=== PATIENT | female | born 1970 | race Caucasian/White ===

== ENCOUNTER 2021-05-18 15:52 | Outpatient (CLI) | payer OTHER, SELFPAY ==
--- NOTE | ~2021-05-18 | MM_ITS ---
EXAMINATION: MM scrn lien implant BI w kim HISTORY: Screening mammogram TECHNIQUE: Craniocaudal and mediolateral oblique 3-D tomosynthesis images with implant displacement a nd synthetic 2-D images were generated. Craniocaudal and mediolateral oblique views of the breasts wi thout implant displacement were obtained using full field digital mammography. CAD analysis was submi tted and interpreted. COMPARISON: Comparison to multiple prior studies sequentially, with oldest reviewed study dated 12/2016. BREAST PARENCHYMAL COMPOSITION: There are scattered areas of fibroglandular density. FINDINGS: There are bilateral subglandular silicone implants. There is no evidence of suspicious mass , calcification, or architectural distortion to suggest malignancy in either breast. There has been n o suspicious interval change. IMPRESSION: 1. No mammographic evidence of malignancy. 2. Recommend routine screening mammography in one year. BI-RADS Category 1: Negative Reviewed, dictated and finalized at location A.
== END 2021-05-18 15:53 | disposition home or self-care (01) ==
LOC: ANHIMG 15:55
PROVIDERS: Visit Provider Internal Medicine
DX: Z12.31 Encounter for screening mammogram for malignant neoplasm of breast (principal)
CPT/HCPCS: 77063; 77067

== ENCOUNTER 2022-12-13 14:19 | Outpatient (CLI) | payer MEDICARE, SELFPAY ==
--- NOTE | ~2022-12-13 | MM_ITS ---
EXAMINATION: MM scrn lien implant BI w kim HISTORY: Screening mammogram TECHNIQUE: Craniocaudal and mediolateral oblique 3-D tomosynthesis images with implant displacement a nd synthetic 2-D images were generated. Craniocaudal and mediolateral oblique views of the breasts wi thout implant displacement were obtained using full field digital mammography. CAD analysis was submi tted and interpreted. COMPARISON: 05/18/2021, October 18, 2018, October 08, 2016 bilateral implant screening mammogram exam inations BREAST PARENCHYMAL COMPOSITION: There are scattered areas of fibroglandular density. FINDINGS: Status post bilateral augmentation mammoplasty. There is no evidence of suspicious mass, ca lcification, or architectural distortion to suggest malignancy in either breast. There has been no ortiz spicious interval change. IMPRESSION: 1. No mammographic evidence of malignancy. 2. Recommend routine screening mammography in one year. BI-RADS Category 1: Negative Reviewed, dictated and finalized at location A.
== END 2022-12-13 14:20 | disposition home or self-care (01) ==
DX: Z12.31 Encounter for screening mammogram for malignant neoplasm of breast (principal)
CPT/HCPCS: 77063; 77067

== ENCOUNTER 2023-09-05 16:07 | Outpatient (CLI) | payer MEDICARE, SELFPAY ==
--- NOTE | ~2023-09-05 | XR_ITS ---
EXAM: XR pelvis 1-2V DATE: 09/05/2023 16:43 HISTORY: PAIN IN LT HIP, HX LOWER BACK SURGERY . COMPARISON: None available. FINDINGS: Normal mineralization. Osseous excrescence extending laterally towards the right and the L 5 vertebral body. Right-sided posterior fusion hardware, incompletely visualized. Oblique orientation of the L4-5 interbody device. No fracture or dislocation. No lytic or blastic lesion. Mild bilateral superior hip joint space narrowing. No erosion or periosteal change. Soft tissues within normal limi ts. IMPRESSION: Obliquely oriented L4-5 interbody device, recommend radiograph of the lumbar spine to confirm positio n. Mild bilateral hip osteoarthritis. Reviewed, dictated and finalized at location K. STRIAL PSYCHOLOGY PROFESSOR IMPRESSION: Obliquely oriented L4-5 interbody device, recommend radiograph of the lumbar sp ine to confirm position. Mild bilateral hip osteoarthritis.
== END 2023-09-05 16:08 | disposition home or self-care (01) ==
PROVIDERS: Visit Provider Neurological Surgery
DX: M25.552 Pain in left hip (principal); M46.1 Sacroiliitis, not elsewhere classified; M16.0 Bilateral primary osteoarthritis of hip
CPT/HCPCS: 72170

== ENCOUNTER 2024-07-23 13:37 | Outpatient (CLI) | payer MEDICARE, SELFPAY ==
--- NOTE | 2024-07-23 13:43 | ECG_ITS ---
Test Date: 2024-07-23 14:13:06 Measurements Intervals [place] Rate: 59 P: 25 ND: 132 QRS: 22 QRSD: 78 T: 11 QT: 378 QTc: 376 Interpretive Statements PROBABLY SINUS BRADYCARDIA (SIGNIFICANT BASELINE ARTIFACT) BASELINE ARTIFACT- I, II, III, AVR, AVL, AVF, V1-V6 BORDERLINE ECG No previous ECG available for comparison Electronically Signed On 07-23-2024 14:19:13 PETROLEUM REFINING EQUIPMENT OPERATOR by Jesus Reich D.O.
[2024-07-23 14:38] LABS: Anion Gap 5 mmol/L (4-12); Blood Urea Nitrogen 20 mg/dL (7-17); Calcium 9.2 mg/dL (8.4-10.2); Carbon Dioxide 26 mmol/L (22-30); Chloride 108 mmol/L (98-107); Estimated Glomerular Filt Rate 47; Glucose 74 mg/dL (65-110); Potassium 3.6 mmol/L (3.4-5.0); Sodium 139 mmol/L (137-145)
== END 2024-07-23 13:38 | disposition home or self-care (01) ==
LOC: ANHSURGERY 13:43
PROVIDERS: Anesthesiology; Visit Provider Orthopaedic Surgery
DX: Z01.818 Encounter for other preprocedural examination (principal); I10 Essential (primary) hypertension; Z79.899 Other long term (current) drug therapy
CPT/HCPCS: 36415; 80048; 93005

== ENCOUNTER 2024-07-26 01:20 | Day surgery (SDC) | payer MEDICARE, SELFPAY ==
[2024-07-22 15:12] VITALS: BMI 24.9
--- NOTE | 2024-07-22 15:20 | PC.NURSE ---
Report to the Outpatient Waiting Room, entrance under the green pavilion located off [facility], at time _1000_ on date _[id number]_. Planned Procedure Time: _1200_.? Time changes happen often and if your time is changed the preop area will call you the afternoon before. - You and your visitor will be asked to self-screen and do not enter if you have any COVID symptoms. Please call surgeon if you need to reschedule. - A mask is optional within the hospital at this time. Patients may have clear liquids (water, carbonated beverages, clear teas, apple juice) until 3 hours prior to surgery with a maximum of 20 ounces. - No food from midnight until time of surgery and no smoking. This includes no chewing gum, candy or mints. Take only the following medications with a SIP of water on the morning of surgery: __Carvidilol and if needed Hydrocodone__ DO NOT STOP ANY OF YOUR OTHER PRESCRIPTION MEDICATIONS PRIOR TO SURGERY EXCEPT THE FOLLOWING Medications to discontinue per physician ___Meloxicam Date to take last dose__Stop now._Says hasn't taken it in a couple days already. Please no make-up, nail greek, hairspray, perfume, deodorant, or body powder the day of surgery.? No jewelry (including any body piercings) or valuables the day of surgery, leave them at home.? Please take a shower or bath the night before, or the morning of, surgery with an antibacterial soap.? Wear comfortable, loose fitting clothing.? - Jewelry must be removed prior to entering the operating room.? Rings and piercings that are not removed may be cut off. - The hospital will not accept responsibility for valuables.? - Please leave all valuables, including medications, at home the day of surgery. If you are going home after surgery, a licensed laborer driver must drive you home.? - NO public transportation without another adult if you receive anesthesia. - We recommend that an adult stay with you for 24 hours following discharge. - We also recommend that you do not drive, make important decision, drink alcoholic beverages, or take any drugs that were not prescribed by your health care provider for at least 24 hours after your discharge time. Follow any additional instructions given to you from your surgeon. Telephone instructions given to _Hyacinth_and asked if any additional questions and then verbalized understanding. Patient advised to call surgeon office or pre surgery nurse liaison [phone] if any additional questions.
[2024-07-26] VITALS (8 sets, daily range): BP systolic 120–150; BP diastolic 67–89; PULSE 55–61; RESP 14–18; TEMP 36.2–36.6; O2SAT 100
[2024-07-26] MEDS: LACTATED RINGERS 1,000 ML 30 ML IV CONT ×2 (10:20→14:19)
[2024-07-26] MEDS: KETOROLAC 15 MG/ML VIAL (*BKC) IV PUSH (10:51)
[2024-07-26] MEDS: ACETAMINOPHEN 500 MG TABLET 1000 MG PO (10:51)
[2024-07-26] MEDS: EPINEPHrine HCL INJ 1 MG/ML AMPUL 3 MG IRRIGATION (11:11)
--- NOTE | 2024-07-26 11:31 | P.PNAN_ITS ---
Anes - Initial Pre Proc Eval Procedure: Operation Date: 07/26/24 12:00 Proposed Procedures p Right Shoulder Arthroscopic Subacromial Decompression with Debridement - Taj Chu MD Date/Time: 07/26/24 11:31 Surgeon: Taj Chu MD Pre Op Diagnosis: Calcific Tendonitis Rt Shoulder Patient Data Age: 53 Gender: F Height: 1.63 m Weight: 66.2 kg Last Vital Signs Temp 36.2 C L 07/26/24 10:46 Pulse 55 L 07/26/24 10:46 Resp 18 07/26/24 10:46 BP 148/85 H 07/26/24 10:46 Pulse Ox 100 07/26/24 10:46 O2 Del Method Room Air 07/26/24 10:46 Allergies Allergy/AdvReac Type Severity Reaction Status Date / Time Sulfa (Sulfonamide Allergy Severe Anaphylactic Verified 07/26/24 10:45 Antibiotics) Shock fentanyl AdvReac Unknown Hypotension Verified 07/26/24 10:45 morphine AdvReac Unknown Itching Verified 07/26/24 10:45 Home Medications Medication Instructions Recorded Confirmed Type carvedilol 25 mg tablet 25 mg PO Q12H 03/05/24 07/26/24 History estradiol 0.5 mg tablet 0.5 mg PO DAILY 03/05/24 07/22/24 History topiramate 100 mg capsule,extended 100 mg PO DAILY 03/05/24 07/22/24 History release 24 hr hydrocodone 7.5 mg-acetaminophen 1 tablet PO QHS PRN Pain 07/17/24 07/22/24 History 325 mg tablet cyclobenzaprine 5 mg tablet 5 mg PO BID PRN Spasms 07/22/24 07/22/24 History meloxicam 7.5 mg tablet 7.5 mg PO BID 07/22/24 07/26/24 History valsartan 160 1 tablet PO DAILY 07/22/24 07/22/24 History mg-hydrochlorothiazide 12.5 mg tablet Patient hx anesthesia problems: none Family hx anesthesia problems: none Results Review: All pre-operative results and documents have been reviewed as part of the pre- operative evaluation. [facility] Past Medical History Medical History Abnormal weight gain Allergic contact dermatitis, unspecified cause Anorexia Depression, unspecified Essential (primary) hypertension Insomnia, unspecified Iron deficiency anemia, unspecified Low back pain, unspecified Menopausal and female climacteric states Nightmare disorder Other fatigue Other intra-abdominal and pelvic swelling, mass and lump Pain in left ankle and joints of left foot Pain in right shoulder Postherpetic polyneuropathy Vitamin D deficiency, unspecified Surgical History Surgical History History of adenoidectomy History of elbow surgery History of spinal fusion (~2019) History of tonsillectomy History of total hysterectomy S/P insertion of spinal cord stimulator (~02/21/24) Social History Social History Years smoked: 40 Smoking status: Current every day smoker Tobacco type: cigarettes Alcohol intake: current Drinks per week: 4 Substance use: never Substance use type: does not use Do You Feel Safe in your Home?: Yes Lack of Transportation: No Lack of Food: Never True Current Housing: I Have Housing Concerned About Future Housing: No Difficulty Paying Gas/Electric Bills: No Difficulty Paying for Meds: No Currently Unemployed: No Education: Trade/Vocational Certificate Difficulty w/ Childcare or Family Care: No Living arrangements: with family Spiritual care concerns: No Anes - Eval Final PreProcedure Day of Procedure 07/26/24 11:31 Patient weight: normal Heart: regular rate and rhythm Lungs: clear to auscultation Airway: Mallampati scale class II Neurological: alert and oriented Last oral intake: >/= 8 hours ASA classification: III Emergent: no Anesthetic plan: proceed Anesthesia type and monitoring: general ETT and standard monitoring Results Review: All pre-operative results and documents have been reviewed as part of the pre- operative evaluation. Informed Consent: The patient's anesthetic plan and its attendant risks and benefits were discussed with the patient/family/POA. Questions were solicited and answers provided to the satisfaction of the patient/family/POA.
--- NOTE | 2024-07-26 12:16 | WPDHPUPDATE1 ---
History and Physical Update Update Date/Time: 07/26/24 12:16 History and Physical has been reviewed, including an updated exam of the patient. There are NO changes in the patient's condition. Risks, benefits, and alternatives have been discussed and questions answered. Patient agrees to proceed with procedure.
[2024-07-26] MEDS: ceFAZolin 2 GM/D5W 50 ML 2 GM/50 ML BAG IVPB (12:22)
[2024-07-26] MEDS: BUPIVACAINE/EPINEPHRINE 0.5% 30 ML VIAL INFILTRATE (12:40)
[2024-07-26] MEDS: HYDROcodone/acetaminophen (*CRX) 7.5-325 MG TABLET 1 TAB PO (15:09)
--- NOTE | 2024-07-26 16:06 | P.OP_ITS ---
Procedure Note - Detailed Date of Procedure 07/26/24 Pre-op Diagnosis Calcific Tendonitis Rt Shoulder Post-op Diagnosis Other (1. Partial-thickness rotator cuff tear 2. Subacromial impingement 3. Adhesive capsulitis 4. Degenerative labral tear) Procedure Performed Right shoulder 1. Arthroscopic rotator cuff repair 2. Arthroscopic subacromial decompression 3. Arthroscopic capsule release 4. Arthroscopic labral debridement Surgeon Taj Chu MD Anesthesia General and Regional ( interscalene block) Indications Severe shoulder pain, worsening despite injection and physical therapy. Calcium deposit noted radiographically with severe tendinosis on MRI. Contracture was discovered during examination under anesthesia. Findings Preoperative examination under anesthesia revealed moderate contracture. Elevation limited to 130?, external rotation 50?, internal rotation in abduction to neutral. Following the arthroscopic capsule release elevation 160?, external rotation 80?, internal rotation to 20?. Capsule was thickened and inflamed in appearance with significant capsulitis. The superior labrum showed degenerative changes treated with debridement, but the biceps and biceps anchor were normal. The articular cartilage was normal. The articular rotator cuff showed 20% tearing of the supraspinatus with some degenerative appearing tissue. There was fraying at the undersurface of the acromion and the lateral rotator cuff attachment was swollen, and slightly frayed. A subacromial decompression with acromioplasty was performed. The partial-thickness rotator cuff tear was repaired with the medium Regeneten collagen patch, 5 NIKOLE soft tissue anchors, and 2 peek bone anchors laterally. Description of Procedure Preoperative antibiotics were given. An interscalene block was administered in the preoperative area. The patient was bought brought to the operating room. A general anesthetic was administered. The patient was carefully positioned in the beach chair position. The head and neck were carefully positioned. The non operative extremity was also carefully positioned. The shoulder was prepped and draped in the usual sterile fashion. Examination was performed. The shoulder was obviously tight particularly with external rotation. Standard posterior and anterior arthroscopic portals were established. Inflow achieved with the arthroscopic pump using saline and epinephrine. The glenohumeral joint was carefully inspected. Diffuse capsulitis and hyperemia was observed. The anterior capsule was 1st released down to 05:00 o'clock using the arthroscopic resecting tool. The camera was moved into the anterior portal and the posterior capsule was released from the portal inferiorly to the 7 o'clock position. At this point the shoulder felt quite balanced hand the glenohumeral space was patent and nicely mobile. The camera was moved back to the posterior portal. The supraspinatus tear was lightly debrided and included about 20% thickness. Posteriorly near the infraspinatus there was a small area of yellowish more degenerative appearing tissue. Overall the cuff integrity was good. The biceps was stable as it was pulled into the joint and inspected thoroughly. The subscapularis was normal. The articular cartilage and inferior labrum were healthy. The anterior and superior labrum showed moderate fraying. Gentle debridement with the shaver and arthroscopic radiofrequency probe created a nice stable rim. The biceps anchor was stable. The partial-thickness tear was marked using a spinal needle and a PDS suture. The anterior margin of the supr aspinatus just behind the biceps tendon was also marked. Attention was turned to the subacromial space. A complete bursectomy was performed. There was some thickening of the bursa. Subacromial space appeared notably tight. A subacromial decompression was performed where there appeared to be direct impingement. There was mild fraying of the supraspinatus in this area less than 10%. Was elected to repair and reinforce the partial-thickness rotator cuff tear using the collagen implant. The Regeneten implant was inserted through a lateral portal. It covered the supraspinatus footprint very well. Through an accessory superolateral portal, 5 NIKOLE soft tissue anchors were inserted into the implant. Laterally, 2 peek bone anchors were inserted. The arthroscopic instruments were removed. The wounds were closed with 3-0 Monocryl subcuticular suture and steri strips. There were no complications. A sling was applied and the patient brought to the recovery room. Implants [employer] Regeneten medium collagen implant. Five NIKOLE soft tissue anchors. Two peek bone anchors. Estimated Blood Loss 10 Pathology None sent Complications No immediate complications Condition Stable Disposition PACU [facility] Billing Surgery - Charge Forward: Surgery Billing
== END 2024-07-26 15:35 | disposition home or self-care (01) ==
PROVIDERS: Visit Provider Orthopaedic Surgery
PROC: (CPT 29805; principal; 2024-07-26 12:00)
DX: M75.111 Incomplete rotator cuff tear or rupture of right shoulder, not specified as traumatic (principal); M75.41 Impingement syndrome of right shoulder; M75.01 Adhesive capsulitis of right shoulder; I10 Essential (primary) hypertension; F17.210 Nicotine dependence, cigarettes, uncomplicated
CPT/HCPCS: 29827; 29826; A4565; A9270; C1713; J0171; J0690; J1100; J1171; J1885; J2003; J2250; J2405; J2704; J7120

== ENCOUNTER 2024-12-10 14:13 | Outpatient (CLI) | payer MEDICARE, SELFPAY ==
--- NOTE | ~2024-12-10 | MM_ITS ---
EXAMINATION: MM scrn lien implant BI w kim HISTORY: Screening mammogram TECHNIQUE: Craniocaudal and mediolateral oblique 3-D tomosynthesis images with implant displacement a nd synthetic 2-D images were generated. Craniocaudal and mediolateral oblique views of the breasts wi thout implant displacement were obtained using full field digital mammography. CAD analysis was submi tted and interpreted. COMPARISON: Comparison to multiple prior studies sequentially, with oldest reviewed study dated 12/2016. BREAST PARENCHYMAL COMPOSITION: Not dense: There are scattered areas of fibroglandular density. FINDINGS: There is no evidence of suspicious mass, calcification, or architectural distortion to sugg est malignancy in either breast. There has been no suspicious interval change. IMPRESSION: 1. No mammographic evidence of malignancy. 2. Recommend routine screening mammography in one year. BI-RADS Category 1: Negative Reviewed, dictated and finalized at location A.
--- OUTSIDE RECORDS SUMMARY | 2024-12-10 15:56 | XMS_ITS | Patient Health Record ---
Author Organization [facility] Address [address] [place] [address] MONIKA Hallman [address] Care Team Providers Care Radiological Health Specialist Name Role Phone KEISHA MURPHY MD Primary Care Provider UnavailParam Marcial Unavailable [phone] MD HERO, OSCAR Unavailable Unavailable ALLERGIES Allergen [...] Antibiotics anaphylaxis Drug Allergy Active REASON FOR REFERRAL No Information MEDICATIONS Medication SIG (Take, Route, Frequency, Duration) Notes Start Date End Date Status Valsartan-hydroCHLOROthiazid e 160-12.5 MG 1 tablet Oral Once a day Active Chlorhexidine Gluconate 4 % as directed Externally prior to surgery for 2 days Active HYDROcodone-Acetaminophen 7.5-325 MG 1 tablet as needed Oral every 12 hours Active Topiramate 50 MG 1 tablet Oral Once a day Active Acyclovir 800 MG TAKE 1 TABLET (800 M G) BY MOUTH 2 TIMES PER DAY NEEDED Oral for 30 Active Aspirin 81 MG 1 tablet Orally Once a day for 30 day(s) Active Doxycycline Hyclate 100 MG 1 tablet Oral ly twice a day for 5 days Active Meloxicam 7.5 MG TAKE ONE TABLET BY MOUTH TWICE DAILY with meals Oral for 30 Active Estradiol 1 MG 1 tablet Orally Once a day Active Carvedilol 25 MG 1 tablet with food Orally Twice a day Active Cyclobenzaprine HCl 5 MG 1 tablet at bed time as needed Oral Once a day Active SOCIAL HISTORY Tobacco Use: Social History Observation Description Date Details (start date - stop date) Current Smoker NA - NA Sex Assigned At : Social History Observation Description Sex Assigned At Unknown Tobacco Use/Smoking Question Answer Notes Are you a current smoker How often do you smoke cigarettes? every day Are you interested in quitting? Not ready to thony t PROBLEMS Problem Type ICD Code Onset Dates Problem Status W/U Status Risk SNOMED Code Notes Problem Fear of injections and transfusions (F40.231) Active confirmed Fear of medical treatment (957350346) Problem Chronic pain syndrome (G89.4) Active confirmed Chronic michael n syndrome (486823365) Problem Sacroiliitis, not elsewhere classified (M46.1) Active confirmed Solitary sacroiliitis (332478008) Problem Spondylosis without myelopathy or radiculopathy, lumbar region (M47.816) Active confirmed Lumbosacral spondylosis without myelopathy (47743015) Problem Spondylosis without myelopathy or radiculopathy, lumbosacral region (M47.817) Active confirmed Lumbosacral spondylosis without myelopathy (disorder) (54933407) Problem Other intervertebral disc degeneration, lumbar region (M51.36) Active confirmed Degeneration of lumbar intervertebral disc (02547330) Problem Radiculopathy, lumbar region (M54.16) Active confirmed Lumbar radiculopathy (378804792) Problem Postlaminectomy syndrome, not elsewhere classified (M96.1) Active confirmed Post-lami nectomy syndrome (75755143) Problem control engineer (current) use of anticoagulants (Z79.01) Active confirmed Long-term curre nt use of anticoagulant (100858434) Problem control engineer (current) use of non-steroidal anti-inflammatorie s (NSAID) (Z79.1) Active confirmed prison current use of non-steroidal anti-inflammatory drug (470818415930560) VITAL SIGNS Heart Rate 60 /min 06/26/2024 Temperature 97.1 degrees Fahrenheit 02/28/2024 Respiratory Rate 18 /min 06/26/2024 Oximetry 96 % 02/21/2024 Blood pressure diastolic 88 mm Hg 06/26/2024 Height 5 ft 4 in in 06/26/2024 Blood pressure systolic 136 mm Hg 06/26/2024 Weight 144 lbs 06/26/2024 BMI 24.71 kg/m2 06/26/2024 Encounters Encounter Location Date Provider Diagnosis [facility] [address] [place] [address] [place] [address] 12/12/2023 Param Stynowick Postlaminectomy syndrome, not elsewhere classified M96.1 ; Radiculopathy, lumbar region M54.16 ; Other intervertebral disc degeneration, lumbar region M51.36 ; Sacroiliitis, not elsewhere classified M46.1 ; Chronic pain syndrome G89.4 and control engineer (current) use of non-steroidal anti-inflammatories (NSAID) Z79.1 [facility] [address] [place] [address] 01/16/2024 Param Stynowick [facility] [address] [place] [address] [place] [address] 01/24/2024 Param Stynowick Radiculopathy, lumba r region M54.16 [facility] [address] [place] [address] 01/26/2024 Param Stynowick Radiculopathy, lumba r region M54.16 ; Postlaminectomy syndrome, not elsewhere classified M96.1 ; Chronic pain syndrome G89.4 and Fear of injections and transfusions F40.231 [facility] [address] [place] [address] 01/30/2024 Param Stynowick [facility] [address] [place] [address] [place] [address] 01/31/2024 Param Stynowick Radiculopathy, lumba r region M54.16 ; Postlaminectomy syndrome, not elsewhere classified M96.1 ; Sacroiliitis, not elsewhere classified M46.1 ; Chronic pain syndrome G89.4 ; control engineer (current) use of anticoagulants Z79.01 and Fear of injections and transfusions F40.231 [facility] [address] [place] [address] 02/13/2024 Param Stynowick [facility] [address] [place] [address] 02/21/2024 Param Stynowick Postlaminectomy syndrome, not elsewhere classified M96.1 ; Radiculopathy, lumbar region M54.16 and Chronic pain syndrome G89.4 [facility] [address] [place] [address] [place] [address] 02/22/2024 Param Stmattie [facility] [address] [place] [address] [place] [address] 02/28/2024 Param Stmattie Spondylosis without myelopathy or radiculopathy, lumbar region M47.816 ; Radiculopathy, lumbar region M54.16 ; Postlaminectomy syndrome, not elsewhere classified M96.1 ; Spondylosis without myelopathy or radiculopathy, lumbosacral region M47.817 and Chronic pain syndrome G89.4 [facility] [address] [place] [address] [place] [address] 03/05/2024 Param Stynvladimirick Postlaminectomy syndrome, not elsewhere classified M96.1 ; Radiculopathy, lumbar region M54.16 ; Other intervertebral disc degeneration, lumbar region M51.36 ; Sacroiliitis, not elsewhere classified M46.1 ; Chronic pain syndrome G89.4 and prison (current) use of non-steroidal anti-inflammatories (NSAID) Z79.1 [facility] [address] [place] [address] [place] [address] 04/10/2024 Param Starvindvladimirick Postlaminectomy syndrome, not elsewhere classified M96.1 ; Radiculopathy, lumbar region M54.16 ; Other intervertebral disc degeneration, lumbar region M51.36 ; Sacroiliitis, not elsewhere classified M46.1 ; Chronic pain syndrome G89.4 and control engineer (current) use of non-steroidal anti-inflammatories (NSAID) Z79.1 [facility] [address] [place] [address] 04/23/2024 Param Stynvladimirick Postlaminectomy syndrome, not elsewhere classified M96.1 ; Radiculopathy, lumbar region M54.16 ; Other intervertebral disc degeneration, lumbar region M51.36 ; Sacroiliitis, not elsewhere classified M46.1 ; Chronic pain syndrome G89.4 and control engineer (current) use of non-steroidal anti-inflammatories (NSAID) Z79.1 [facility] [address] [facility] [place] [address] 05/21/2024 Param Fields [facility] [address] [facility] [place] [address] 06/26/2024 Param Fields Postlaminectomy syndrome, not elsewhere classified M96.1 ; Radiculopathy, lumbar region M54.16 ; Other intervertebral disc degeneration, lumbar region M51.36 ; Sacroiliitis, not elsewhere classified M46.1 ; Chronic pain syndrome G89.4 and control engineer (current) use of non-steroidal anti-inflammatories (NSAID) Z79.1 ASSESSMENTS Encounter Date Diagnosis Assessment Notes Treatment Notes Treatment Clinical Notes 12/12/2023 Radiculopathy, lumba r region (ICD-10 - M54.16) 12/12/2023 Postlaminectomy syndrome, not elsewhere classified (ICD-10 - M96.1) Given the severity of this patient's persistent pain over many years and failure to respond to surgical management she would like to proceed with a spinal cord stimulator trial as soon as possible. Spinal cord stimulation was discussed with patient for more durable relief of her low back and lower extremity pain and the patient was given a DVD and brochure for more information. She would like to schedule a spinal cord stimulator trial at this time. The risks of this procedure including pain, bleeding, infection, epidural hematoma, spinal headache, persistent spinal fluid leak, nerve damage, spinal cord injury, paralysis, worsening pain and failure to relieve pain were discussed and the patient is agreeable to proceeding at this time. 01/24/2024 Radiculopathy, lumba r region (ICD-10 - M54.16) Spinal cord stimulation was discussed with patient for more durable relief of her low back and lower extremity pain and the patient was given a DVD and brochure for more information. She would like to schedule a spinal cord stimulator trial at this time. The risks of this procedure including pain, bleeding, infection, epidural hematoma, spinal headache, persistent spinal fluid leak, nerve damage, spinal cord injury, paralysis, worsening pain and failure to relieve pain were discussed and the patient is agreeable to proceeding at this time. 01/26/2024 Radiculopathy, lumba r region (ICD-10 - M54.16) 04/23/2024 Postlaminectomy syndrome, not elsewhere classified (ICD-10 - M96.1) 06/26/2024 Postlaminectomy syndrome, not elsewhere classified (ICD-10 - M96.1) 04/10/2024 Postlaminectomy syndrome, not elsewhere classified (ICD-10 - M96.1) 03/05/2024 Radiculopathy, lumba r region (ICD-10 - M54.16) The patient's SCS was interrogated reprogrammed in the office today with improved axial low back and bilateral lower extremity neuropathic pain coverage with good paresthesia overlap. The patient was instructed to continue avoiding submerging in the water, however she is advised to continue daily showers. Additionally, the patient was educated to contact the office in case of fever, bleeding or significant drainage from postoperative incisions. She verbalizes good understanding of that 03/05/2024 Postlaminectomy syndrome, not elsewhere classified (ICD-10 - M96.1) 02/28/2024 Spondylosis without myelopathy or radiculopathy, lumbar region (ICD-10 - M47.816) 02/28/2024 Radiculopathy, lumba r region (ICD-10 - M54.16) The patient's SCS was interrogated reprogrammed in the office today with improved axial low back and bilateral lower extremity neuropathic pain coverage with good paresthesia overlap The patient was instructed to continue avoiding submerging in the water, however she is advised to continue daily showers. Additionally, the patient was educated to contact the office in case of fever, bleeding or significant drainage from postoperative incisions. She verbalizes good understanding of that 01/31/2024 Radiculopathy, lumba r region (ICD-10 - M54.16) Injection sites are clean, dry and intact. Both spinal cord stimulator leads were removed without resistance and were completely intact. Neosporin ointment and Band-Aids were applied at the injection sites. Schedule a permanent spinal cord stimulator implantation. The risks of this procedure including pain, bleeding, infection, epidural hematoma, spinal headache, persistent spinal fluid leak, nerve damage, spinal cord injury, paralysis, worsening pain and failure to relieve pain were discussed and the patient is agreeable to proceeding at this time. The inherent risks of anesthesia including airway obstruction resulting in cardiopulmonary arrest and were also discussed and the patient is agreeable to proceeding at this time 01/31/2024 Postlaminectomy syndrome, not elsewhere classified (ICD-10 - M96.1) 02/21/2024 Radiculopathy, lumba r region (ICD-10 - M54.16) 02/21/2024 Postlaminectomy syndrome, not elsewhere classified (ICD-10 - M96.1) 02/21/2024 Chronic pain syndrom e (ICD-10 - G89.4) 02/28/2024 Postlaminectomy syndrome, not elsewhere classified (ICD-10 - M96.1) 01/31/2024 Sacroiliitis, not elsewhere classified (ICD-10 - M46.1) 04/10/2024 Radiculopathy, lumba r region (ICD-10 - M54.16) 03/05/2024 Other intervertebral disc degeneration, lumbar region (ICD-10 - M51.36) 06/26/2024 Other intervertebral disc degeneration, lumbar region (ICD-10 - M51.36) 06/26/2024 Radiculopathy, lumba r region (ICD-10 - M54.16) The patient's SCS [...] reevaluation of her pain at that time. 01/26/2024 Postlaminectomy syndrome, not elsewhere classified (ICD-10 - M96.1) 01/26/2024 Chronic pain syndrom e (ICD-10 - G89.4) 04/23/2024 Other intervertebral disc degeneration, lumbar region (ICD-10 - M51.36) 04/23/2024 Radiculopathy, lumba r region (ICD-10 - M54.16) The patient's SCS [...] reevaluation of her pain at that time. 12/12/2023 Other intervertebral disc degeneration, lumbar region (ICD-10 - M51.36) 12/12/2023 Sacroiliitis, not elsewhere classified (ICD-10 - M46.1) 04/23/2024 Sacroiliitis, not elsewhere classified (ICD-10 - M46.1) 01/26/2024 Fear of injections and transfusions (ICD-10 - F40.231) 06/26/2024 Sacroiliitis, not elsewhere classified (ICD-10 - M46.1) 03/05/2024 Sacroiliitis, not elsewhere classified (ICD-10 - M46.1) 04/10/2024 Other intervertebral disc degeneration, lumbar region (ICD-10 - M51.36) 01/31/2024 Chronic pain syndrom e (ICD-10 - G89.4) The patient was given a handout explaining the preoperative bathing instructions 02/28/2024 Spondylosis without myelopathy or radiculopathy, lumbosacral region (ICD-10 - M47.817) 02/28/2024 Chronic pain syndrom e (ICD-10 - G89.4) 01/31/2024 control engineer (current) use of anticoagulants (ICD-10 - Z79.01) The patient was instructed to discontinue aspirin for 6 days prior to the procedure. I made the patient aware that she will be at an increased risk for a thromboembolic event during this time and she is willing to accept this risk. The patient was instructed to notify her primary care physician and/or centrifugal wax molder to obtain clearance prior to discontinuing this medication. 04/10/2024 Sacroiliitis, not elsewhere classified (ICD-10 - M46.1) 03/05/2024 Chronic pain syndrom e (ICD-10 - G89.4) 06/26/2024 Chronic pain syndrom e (ICD-10 - G89.4) 04/23/2024 Chronic pain syndrom e (ICD-10 - G89.4) 12/12/2023 Chronic pain syndrom e (ICD-10 - G89.4) 12/12/2023 control engineer (current) use of non-steroidal anti-inflammatories (NSAID) (ICD-10 - Z79.1) The patient was instructed to discontinue Aspirin for 6 days prior to the procedure. 04/23/2024 control engineer (current) use of non-steroidal anti-inflammatories (NSAID) (ICD-10 - Z79.1) 06/26/2024 control engineer (current) use of non-steroidal anti-inflammatories (NSAID) (ICD-10 - Z79.1) 04/10/2024 Chronic pain syndrom e (ICD-10 - G89.4) 01/31/2024 Fear of injections and transfusions (ICD-10 - F40.231) Due to a severe fear of needles and injections, the patient is insisting on IV Sedation with this procedure. The patient was advised she may drink clear liquids up until 2 hours prior to the procedure, but was instructed not to eat for 8 hours prior to the procedure. The inherent risks of anesthesia up to and including airway obstruction potentially resulting in cardiac arrest and were also discussed and the patient is agreeable to proceeding at this time. 03/05/2024 control engineer (current) use of non-steroidal anti-inflammatories (NSAID) (ICD-10 - Z79.1) 04/10/2024 control engineer (current) use of non-steroidal anti-inflammatories (NSAID) (ICD-10 - Z79.1) 12/12/2023 Other Ivonne Petit was present for the entire interview and physical examination, acting as a scribe for Dr. Param Fields. Some of the above chart information was entered by Ivonne Petit. Dr. Fields has reviewed and agrees with this portion of the documentation. The remainder of the above note was dictated by Dr. Fields using voice recognition software and therefore inadvertent errors may have occurred. As a result, this note may not represent a completely accurate interpretation of the intended dictation provided. Thank you Dr. Mora for your kind referral and for involving me in the care of this patient. 01/24/2024 Other Ivonne Petit was present for the entire interview and physical examination, acting as a scribe for Dr. Param Fields. Some of the above chart information was entered by Ivonne Petit. Dr. Fields has reviewed and agrees with this portion of the documentation. The remainder of the above note was dictated by Dr. Fields using voice recognition software and therefore inadvertent errors may have occurred. As a result, this note may not represent a completely accurate interpretation of the intended dictation provided. 01/26/2024 Other The patient voiced understanding of the treatment plan and all questions were addressed. Obtain informed consent: Spinal Cord Stimulator Trial under fluoroscopy. Monitor pulse, blood pressure and SaO2 before, after and as needed during procedure. Verify if the patient is currently taking blood thinner. Verify patients is not currently on antibiotics for infection The patient may not drive home CARE PLAN: Knowledge deficit: Will verbalize understanding of the proposed procedure, including risk of electrical burn, complications and benefits of the procedure? Will the patient exhibit understanding of the discharge instructions? Safety: The potential for injury related to surgery was assessed; Fire risk score determined, test completed if applicable. Risk for injury related to wrong patient, site, procedure. TIME OUT for safety of patient and includes patient name, , procedure site, side, level, allergies, blood thinners, antibiotics, surgical counts, consents correct and signed etc. Risk for infection: Implements aseptic technique, protects from cross-contamination, performs skin preparations. Pain/Discomfort: Patient verbalizes acceptable level of pain relief prior to discharge and the ability to engage in desired activity. I HAVE REVIEWED THE PATIENT'S MEDICATION LIST AND HAVE RECONCILED THE ABOVE MEDICATIONS. PATIENT GOALS AND SAFETY CONCERNS HAVE BEEN ADDRESSED. RN initials TREY Petit was present for the entire interview and physical examination, acting as a scribe for Dr. Param Fields. Some of the above chart information was entered by Ivonne Petit. Dr. Fields has reviewed and agrees with this portion of the documentation. The remainder of the above note was dictated by Dr. Fields using voice recognition software and therefore inadvertent errors may have occurred. As a result, this note may not represent a completely accurate interpretation of the intended dictation provided. 01/31/2024 Other The patient was instructed to take this medication following their permanent SCS implantation to prevent infection The above-named patient was evaluated in conjunction [...] This note was dictated by DEMARCUS Garrison 02/21/2024 Other The patient voiced understanding of the treatment plan and all questions were addressed. Obtain informed consent: Spinal Cord Stimulator Permanent Implant under fluoroscopy. Monitor pulse, blood pressure and SaO2 before, after and as needed during procedure. Verify if the patient is currently taking blood thinner. Verify patients is not currently on antibiotics for infection The patient may not drive home CARE PLAN: Knowledge deficit: Will verbalize understanding of the proposed procedure, including risk of electrical burn, complications and benefits of the procedure? Will the patient exhibit understanding of the discharge instructions? Safety: The potential for injury related to surgery was assessed; Fire risk score determined, test completed if applicable. Risk for injury related to wrong patient, site, procedure. TIME OUT for safety of patient and includes patient name, , procedure site, side, level, allergies, blood thinners, antibiotics, surgical counts, consents correct and signed etc. Risk for infection: Implements aseptic technique, protects from cross-contamination, performs skin preparations. Pain/Discomfort: Patient verbalizes acceptable level of pain relief prior to discharge and the ability to engage in desired activity. I HAVE REVIEWED THE PATIENT'S MEDICATION LIST AND HAVE RECONCILED THE ABOVE MEDICATIONS. PATIENT GOALS AND SAFETY CONCERNS HAVE BEEN ADDRESSED. RN initials SW. 02/28/2024 Other The above-named patient was evaluated in [...] This note was dictated by DEMARCUS Garrison 03/05/2024 Other The above-named patient was evaluated in [...] This note was dictated by DEMARCUS Garrison 04/23/2024 Other The above-named patient was evaluated [...] This note was dictated by DEMARCUS Garrison 06/26/2024 Other The above-named patient was evaluated [...] Medical Decision Makin minutes PLAN OF TREATMENT No Information Insurance Providers Payer Name Payer Address Payer Phone Subscriber Number Group Number Insured Name Patient Relationship to Insured Coverage Start Date Coverage End Date [employer] MED[employer]ARE [address] [place] [phone] [id number] Self - patient is the insured MEDICAL (GENERAL) HISTORY Medical History History ICD Code Hypertension Surgical History Surgery Date(Month/Year) Hysterectomy L5-S1 Fusion 1998 Ulnar nerve release 1999 L3-L4 fusion--Dr. Mora 05/15/2020 Lumbar Hardware Removal--Dr. Mora 2022 Hospitalization History Reason Date(Month/Year) pneumonia 10/2019
--- OUTSIDE RECORDS SUMMARY | 2024-12-10 15:56 | XMS_ITS | Referral Summary ---
Author Organization [facility] Medical Office Building A Address [address] [place] [address] Care Team Providers Care Diamond Driller Helper Name Role Phone Sukumar Leslie MD Unavailable [phone] Miscellaneous, Not In File Unavailable Unava ilable Nura Mora MD Unavailable [phone] Viral Harrison MD Primary Care Provider [phone] Allergies Active Allergy Reactions Criticality Noted Date Comments Morphine Itching Low 08/15/2013 Tolerates hydromorphone 05/15/20 Sulfa (Sulfonamide Antibiotics) Swelling Medium 02/25/2020 Medications carvediloL (COREG) 25 mg tablet Take 25 mg by mouth 2 (two) times a day Active estradioL (ESTRACE) 1 mg tablet Take 1 mg by mouth daily Active valsartan-hydro CHLOROthiazide (DIOVAN-HCT) 160-12.5 mg per tablet Take 1 tablet by mouth daily 09/01/2022 Active gabapentin (NEURONTIN) 800 mg tablet Take 800 mg by mouth every 8 (eight) hours as needed 08/31/2022 Active dexAMETHasone (DECADRON) 1 mg tablet TAKE 1 TABLET BY ORAL ROUTE BETWEEN 11PM AND MIDNIGHT THE NIGHT BEFORE LABS ARE DRAWN 09/01/2022 Active cyclobenzaprine (FLEXERIL) 5 mg tablet Take 5 mg by mouth nightly 08/03/2022 Active acetaminophen (TYLENOL) 325 mg tablet Take 650 mg by mouth every 6 (six) hours as needed for pain Active phentermine (ADIPEX-P) 37.5 mg tablet 0 09/23/2022 Active acyclovir (ZOVIRAX) 800 mg tablet 01/07/2023 Active topiramate (TOPAMAX) 25 mg tablet 01/12/2023 Active HYDROcodone-srinath taminophen (NORCO) 7.5-325 mg per tablet 01/17/2023 Activ e Active Problems Problem Noted Date Diagnosed Date Sacroiliitis 09/06/2022 Overview (09/06/2022): Added automatically from request for surgery [id number] Spondylolisthesis at L4-L5 level 04/01/2020 Overview (04/01/2020): Added automatically from request for surgery [id number] Hypertension 02/25/2020 Elevated troponin level 02/25/2020 Overview (02/26/2020): Added automatically from request for surgery [id number] Hyperlipidemia Neuropathy Sleep apnea Overview (05/15/2020): uvulectomy/sinus surgery Social History Tobacco Use Types Packs/Day Years Used Date Smoking Tobacco: Every Day Cigarettes Smokeless Tobacco: Never Tobacco Cessation:Ready to Q uit: Not Asked; Counseling Given: Not Answered Comments:Smoking cessation booklet provider Alcohol Use Standard Drinks/Week Comments Not Currently 0 (1 standard drink = 0.6 oz pur e alcohol) AUDIT-C Answer Date Recorded Q1: How often do you have a drink containing alc ohol? 2-4 times a month 09/27/2022 Q2: How many drinks containi ng alcohol do you have on a typical day when you are drinking? 3 or 4 09/27/2022 Q3: How often do you have si x or more drinks on one occasion? Less than monthly 09/27/2022 Comments No Sex and Gender Information Value Date Recorded Sex Assigned at Not on file Legal Sex Female 5:51 PM CARDIOGRAPH OPERATOR Gender Identity Not on file Sexual Orientation Not on file Last Filed Vital Signs Vital Sign Reading Time Taken Comments Blood Pressure 111/58 09/27/2022 1:30 PM CARDIOGRAPH OPERATOR Pulse 58 09/27/2022 1:33 PM CARDIOGRAPH OPERATOR Temperature 36.4 C (97.5 F) 09/27/2022 12:50 PM CARDIOGRAPH OPERATOR Respiratory Rate 15 09/27/2022 1:33 PM CARDIOGRAPH OPERATOR Oxygen Saturation 95% 09/27/2022 1:33 PM CARDIOGRAPH OPERATOR Inhaled Oxygen Concentration - - Weight 71.2 kg (157 lb) 11/08/2022 2:23 PM CARDIOGRAPH OPERATOR Height 162.6 cm (5' 4 ) 11/08/2022 2:23 PM CARDIOGRAPH OPERATOR Body Mass Index 26.95 11/08/2022 2:23 PM CARDIOGRAPH OPERATOR Plan of Treatment Not on file Medical Devices Implanted Type Area Watchguard Device Identifier Shelf Expiration Date Model / Serial / Lot [employer] Spinal Cord Stimulator Leads (Sc-2218-50) Implanted:Qty: 2 Lead Chest [employer] Neuro- MT-2218-5 0 / / [employer] Spinal Cord Stimulator (Sc-1216) Spinal Cord Stimulator Back [employer] Neuro- MT-1216 / / Description:Information not complete -- VM to patient 05/31/24, pt does not have mNectar [id number] Device Closure Angio-Seal Vip Bondek-Plus Polyglyd L70 Cm Od6 Fr Odsec.035 In Vascular - [id number] Implanted:Qty: 1 on 02/26/2020 by Zenon Reddy MD at [facility] [employer] [id number] / / Filler Bone Void Nanoss Bioactive 3d Porous Calcium Phosphate L50 Mm X W25 Mm X H8 Mm 5 Ml Semirigid Resorable Scaffold Compressible Latex Free - [id number] Implanted:Qty: 1 on 05/15/2020 by Nura Mora MD at [facility] Left: Spine Lumbar [employer] 06/07/2021 90-300-25 504 / / [id number] Medtronic Sofamor Danek [id number] Infuse 14mm 23mm Absorbable Sponge Sterile Water Syringe Needle - [id number] Implanted:Qty: 1 on 05/15/2020 by Nura Mora MD at [facility] Left: Spine Lumbar Medtronic Inc 05/04/2021 [id number] / / [id number] L Cage Tibond [id number] 5d - [id number] Implanted:Qty: 1 on 05/15/2020 by Nura Mora MD at [facility] Left: Spine Lumbar Spinal Elements [id number] 3 / / Screw Set Spine Zavation Nonstrl - [id number] Implanted:Qty: 6 on 05/15/2020 by Nura Mora MD at [facility] Explanted:Qty: 3 on 09/27/2022 by Nura Mora MD at [facility] Left: Spine Lumbar [employer] Llc / / Screw Polyaxial Cannulated Reduction 6.5x35 - [id number] Implanted:Qty: 2 on 05/15/2020 by Nura Mora MD at [facility] Explanted:Qty: 1 on 09/27/2022 by Nura Mora MD at [facility] Left: Spine Lumbar Zavation Llc 13R-6535 / / Screw Polyaxial Cannulated Reduction 6.5x45 - [id number] Implanted:Qty: 4 on 05/15/2020 by Nura Mora MD at [facility] Explanted:Qty: 2 on 09/27/2022 by Nura Mora MD at [facility] Left: Spine Lumbar Z[employer] Llc 13R-6545 / / Lul Pre-Bent 6.0x80 - [id number] Implanted:Qty: 2 on 05/15/2020 by Nura Mora MD at [facility] Explanted:Qty: 1 on 09/27/2022 by Nura Mora MD at [facility] Left: Spine Lumbar [employer] Llc 13-C080 / / Explanted Type Area Watchguard Device Identifier Shelf Expiration Date Model / Serial / Lot Don[employer]ation Llc 210-1003-2 Zavation Jacque Blunt Smooth Spine Wire Fixation Nonsterile - [id number] Explanted:Qty: 6 on 05/15/2020 at [facility] Left: Spine Lumbar [employer] Llc 210-1003-2 / / Procedures Procedure Name Priority Date/Time Associated Diagnosis Comments SCREENING MAMMOGRAM Routine 05/21/2014 1 :44 PM CDT from Last 3 Months or Most Recently Relevant to Health Maintenance Results * Screening Mammogram (05/21/2014 1:44 PM CDT) Anatomical Region Laterality Modality Breast N/A Mammography 05/21/2014 1:44 PM CDT Narrative 05/21/2014 1:51 PM CDT ALLAN YANG M.D. FINAL REPORT ACC# Date Time Exam [id number] May 21, 2014 13:44:00 WMM 96537P Screening Mamm Bilat 2v Technologist(s): Teri Krishnan; ; EXAMINATION: Mammogram Technique: Bilateral Full-Field Digital Screening Mammogram was performed. Views obtained: bilateral craniocaudal; bilateral craniocaudal implant displaced; bilateral mediolateral oblique; and bilateral mediolateral oblique implant displaced. Computer Aided Detection was performed with Lookout 1.3 version 9.3. Mammogram Findings: There are scattered fibroglandular densities. There is no suspicious abnormality in either breast. IMPRESSION: Annual screening mammography is recommended. OVERALL FINAL ASSESSMENT: BI-RADS CATEGORY 1: Negative. Requested By: Dictated By: ALLAN YANG M.D. on May 21 2014 1:51P This document has been electronically signed by: ALLAN YANG M.D. on May 21 2014 1:51P Procedure Note Provider, MD Princess - 01/04/2017 ALLAN YANG M.D. FINAL REPORT ACC# Date Time Exam [id number] May 21, 2014 13:44:00 WMM [id number] Screening Mamm Bilat 2v Technologist(s): Teri Krishnan; ; EXAMINATION: Mammogram Technique: Bilateral Full-Field Digital Screening Mammogram was performed. Views obtained: bilateral craniocaudal; bilateral craniocaudal implant displaced; bilateral mediolateral oblique; and bilateral mediolateral oblique implant displaced. Computer Aided Detection was performed with Lookout 1.3 version 9.3. Mammogram Findings: There are scattered fibroglandular densities. There is no suspicious abnormality in either breast. IMPRESSION: Annual screening mammography is recommended. OVERALL FINAL ASSESSMENT: BI-RADS CATEGORY 1: Negative. Requested By: Dictated By: ALLAN YANG M.D. on May 21 2014 1:51P This document has been electronically signed by: ALLAN YANG M.D. on May 21 2014 1:51P us Historical Provider MD BAL MAMMO PROCEDURES Connie l Result from Last 3 Months or Most Recently Relevant to Health Maintenance Insurance [facility] AETNA MEDICARE [facility] AETNA MEDICARE AETNA MEDICARE Advance Directives For more information, please contact: [phone] * Full Code (Latest Code Status on File) Date Activated Date Inactivated Comments 05/15/2020 5:35 PM 05/16/2020 5:59 PM * Full Code Date Activated Date Inactivated Comments 02/26/2020 6:31 PM 02/27/2020 7:12 PM * Full Code Date Activated Date Inactivated Comments 02/25/2020 3:59 PM 02/26/2020 6:31 PM Care Teams Diamond Driller Helper Relationship Specialty Start Date End Date Viral Harrison MD [address] [place] [address] PCP - General Family Medicine 09/13/22 Sukumar Leslie MD [address] [place] [address] Consulting Physician Cardiology 02/27/20 Miscellaneous, Not In File 02/27/20 [place] [address] [place] [address] Surgeon Neurosurgery 02/27/20
--- OUTSIDE RECORDS SUMMARY | 2024-12-10 15:56 | XMS_ITS | Clinical Summary ---
Author Organization [facility] Address Formerly [facility] [place] [address] Care Team Providers Care Pipe Fitter [address] Service Name Role Phone Viral Harrison MD Primary Care Provider Social History Tobacco Use Types Packs/Day Years Used Date Smoking Tobacco: Never Assessed Comments Unknown Sex and Gender Information Value Date Recorded Sex Assigned at Not on file Legal Sex Female 10:35 AM CDT Gender Identity Not on file Sexual Orientation Not on file Plan of Treatment Health Maintenance Due Date Last Done Comments CT Colonography 1969 Colonoscopy 1969 Colorectal Cancer Screening 1969 FIT-DNA 1969 FIT 1969 FOBT 1969 Mammogram 1969 Pap Smear 1969 Sigmoidoscopy 1969 MMR Vaccines (1 of 1 - Standard series) 1970 DTaP,Tdap,and Td Vaccines (1 - Tdap) 1976 Varicella Vaccines (1 of 2 - 13+ 2-dose series) 1982 Hepatitis B Vaccines (1 of 3 - 19+ 3-dose series) 1988 COVID-19 Vaccine (3 - 2023-2 5 season) 2024 08/17/2021, 07/27/2021 Influenza Vaccine (Season Ended) 2025 06/19/2014 RSV Vaccines and 60 Years or Older (1 - 1-dose 75+ series) 2044 Zoster Series Vaccines Completed 0, 05/25/2020 AMB Pneumococcal 0-64 yrs Aged Out No longer eligible based on patient's age to complete this topic HIB Vaccines Aged Out No longer eligi ble based on patient's age to complete this topic HPV Vaccines Aged Out No longer eligi ble based on patient's age to complete this topic Hepatitis A Vaccines Aged Out No long er eligible based on patient's age to complete this topic IPV Vaccines Aged Out No longer eligi ble based on patient's age to complete this topic Meningococcal ACWY Vaccine Aged Out N o longer eligible based on patient's age to complete this topic Meningococcal B Vaccine Aged Out No l onger eligible based on patient's age to complete this topic RSV Vaccines <20 Months Aged Out No l onger eligible based on patient's age to complete this topic Insurance AETNA MEDICARE Care Teams Pipe [address] Service Relationship Specialty Start Date End Date Viral Harrison MD [address] [place] [id number] PCP - General Nurse Tech 08/18/22
--- OUTSIDE RECORDS SUMMARY | 2024-12-10 15:56 | XMS_ITS ---
Author Organization [facility] Address [address] [place] [address] MONIKA Hallman [address] Care Team Providers Care Director Revenue Name Role Phone KATHERINE DUNBAR, KEISHA Primary Care Provider UnavailParam Marcial Unavailable [phone] MD HERO, OSCAR Unavailable Unavailable ALLERGIES Allergen [...] Location Date Provider Diagnosis [facility] [address] [place] [address] [place] [address] 04/23/2024 Param Fields Postlaminectomy syndrome, not elsewhere classified M96.1 ; Radiculopathy, lumbar region M54.16 ; Other intervertebral disc degeneration, lumbar region M51.36 ; Sacroiliitis, not elsewhere classified M46.1 ; Chronic pain syndrome G89.4 and correction (current) use of non-steroidal anti-inflammatories (NSAID) Z79.1 ASSESSMENTS Encounter Date Diagnosis Assessment Notes Treatment Notes Treatment Clinical Notes 04/23/2024 Postlaminectomy syndrome, not elsewhere classified (ICD-10 - M96.1) 04/23/2024 Radiculopathy, lumba r region (ICD-10 - [...] classified (ICD-10 - M46.1) 04/23/2024 Chronic pain syndrom e (ICD-10 - G89.4) 04/23/2024 buttermaker continuous churn (current) use of non-steroidal anti-inflammatories (NSAID) (ICD-10 [...] Notes * Examination Category Sub-Category Detail Notes Examination/ Pre-Anesthesia Assessment General: The patient is alert and norah ented X 3 in moderate distress secondary to [...] patient's typical axial low back pain. [place]'s, [place]'s and [place]'s are positive bilaterally. There is [...] of Present Illness) Category Sub-Category Detail Notes Pain Management Radiographic Imaging MRI lumbar spine done on 01/26/23 demonstrates DDD from T10-11 through L3-4. There is an anterior and posterior interbody fusion at L4-5 and L5-S1. At L3-4 there is central canal and right foraminal stenosis Assessment and Follow-up: Follow-up Plan documen janay:: Yes [facility] Quality 2020: MIPS Documented:: Compliant
--- OUTSIDE RECORDS SUMMARY | 2024-12-10 15:56 | XMS_ITS | Clinical Summary ---
Author Organization [facility] Medical Office Building A Address [address] [place] [address] Care Team Providers Care Production Laborer Name Role Phone Sukumar Leslie MD Unavailable [phone] Miscellaneous, Not In File Unavailable Unava ilable Nura Mora MD Unavailable [phone] Viral Harrison MD Primary Care Provider [phone] Allergies Active Allergy Reactions Criticality Noted Date [...] (09/06/2022): Added automatically from request for surgery [id number] Spondylolisthesis at L4-L5 level 04/01/2020 Overview (04/01/2020): Added automatically from request for surgery [id number] Hypertension 02/25/2020 Elevated troponin level 02/25/2020 Overview (02/26/2020): Added automatically from request for surgery [id number] Hyperlipidemia Neuropathy Sleep apnea Overview (05/15/2020): uvulectomy/sinus surgery Surgical History Surgery Date Site/Laterality Comments BACK SURGERY lumbar fusion X 2 HYSTERECTOMY ULNAR NERVE TRANSPOSITION Right UVULECTOMY SINUS SURGERY TONSILLECTOMY BREAST SURGERY augmentation Medical History Medical History Date Comments Hypertension Bradycardia during preop per iod before planned spinal surgery Hx of Clostridium difficile infection Hx: recurrent pneumonia Anemia Arthritis Cataract Neuropathy Hyperlipidemia Sleep apnea uvulectomy/sinus surgery Kidney stone 30 years ago Depression Family History Medical History Relation Name Comments Heart disease Father Thyroid disease Mother Relation Name Status Comments Father Alive Mother Alive Social History Tobacco Use Types Packs/Day Years [...] on file Legal Sex Female 5:51 PM DRESS DESIGNER Gender Identity Not on file Sexual Orientation Not on file Obstetrics History Last Filed Vital Signs Vital Sign Reading Time Taken Comments Blood Pressure 111/58 09/27/2022 1:30 PM DRESS DESIGNER Pulse 58 09/27/2022 1:33 PM DRESS DESIGNER Temperature 36.4 C (97.5 F) 09/27/2022 12:50 PM DRESS DESIGNER Respiratory Rate 15 09/27/2022 1:33 PM DRESS DESIGNER Oxygen Saturation 95% 09/27/2022 1:33 PM DRESS DESIGNER Inhaled Oxygen Concentration - - Weight 71.2 kg (157 lb) 11/08/2022 2:23 PM DRESS DESIGNER Height 162.6 cm (5' 4 ) 11/08/2022 2:23 PM DRESS DESIGNER Body Mass Index 26.95 11/08/2022 2:23 PM DRESS DESIGNER Plan of Treatment Health Maintenance Due Date Last Done Comments Colon Cancer Screening-Colonoscopy 1969 Depression Screening 1969 Hepatitis C Screening 1969 DTaP/Tdap/Td Vaccine (1 - Tdap) 1980 Hepatitis B Screening 12/11/1987 Regular Well Visit/Exam 18-64 12/11/1987 Pneumococcal vaccine <65 (1 of 2 - PCV) 1988 Breast Cancer Screening-Mammogram 05/21/2015 014 Zoster Vaccine (1 of 2) 12/11/2019 Influenza Vaccine (#1) 2024 06/19/2014 Medical Devices Implanted Type Area Classroom Aide Device Identifier Shelf Expiration Date Model / Serial / Lot [employer] Spinal Cord Stimulator Leads (Sc-2218-50) Implanted:Qty: 2 Lead Chest [employer] Neuro- SC-2218-5 0 / / [employer] Spinal Cord Stimulator (Sc-1216) Spinal Cord Stimulator Back [employer] Neuro- SC-1216 / / Description:Information not complete -- VM to patient 05/31/24, pt does not have MyChart Transave [id number] Device Closure Angio-Seal Vip Bondek-Plus Polyglyd L70 Cm Od6 Fr Odsec.035 In Vascular - [id number] Implanted:Qty: 1 on 02/26/2020 by Zenon Reddy MD at [facility] Transave/[employer] [id number] / / Filler Bone Void Nanoss Bioactive 3d Porous Calcium Phosphate L50 Mm X W25 Mm X H8 Mm 5 Ml Semirigid Resorable Scaffold Compressible Latex Free - [id number] Implanted:Qty: 1 on 05/15/2020 by Nura Mora MD at [facility] Left: Spine Lumbar [employer] 06/07/2021 90-300-25 504 / / [id number] Medtronic Sofamor Danek [id number] Infuse 14mm 23mm Absorbable Sponge Sterile Water Syringe Needle - [id number] Implanted:Qty: 1 on 05/15/2020 by Nura Mora MD at [facility] Left: Spine Lumbar Medtronic Inc 05/04/2021 [id number] / / [id number] L Cage Tibond [id number] 5d - [id number] Implanted:Qty: 1 on 05/15/2020 by Nura Mora MD at [facility] Left: Spine Lumbar Spinal Elements G53966-16 3 / / Screw Set Spine Zavation Nonstrl - [id number] Implanted:Qty: 6 on 05/15/2020 by Nura Mora MD at [facility] Explanted:Qty: 3 on 09/27/2022 by Nura Mora MD at [facility] Left: Spine Lumbar [employer]c / / Screw Polyaxial Cannulated Reduction 6.5x35 - [id number] Implanted:Qty: 2 on 05/15/2020 by Nura Mora MD at [facility] Explanted:Qty: 1 on 09/27/2022 by Nura Mora MD at [facility] Left: Spine Lumbar [employer] Llc 13R-6535 / / Screw Polyaxial Cannulated Reduction 6.5x45 - [id number] Implanted:Qty: 4 on 05/15/2020 by Nura Mora MD at [facility] Explanted:Qty: 2 on 09/27/2022 by Nura Mora MD at [facility] Left: Spine Lumbar [employer] Llc 13R-6545 / / Lul Pre-Bent 6.0x80 - [id number] Implanted:Qty: 2 on 05/15/2020 by Nura Mora MD at [facility] Explanted:Qty: 1 on 09/27/2022 by Nura Mora MD at [facility] Left: Spine Lumbar Magy Lea 13-C080 / / Explanted Type Area Classroom Aide Device Identifier Shelf Expiration Date Model / Serial / Lot Magy Lea 210-1003-2 Magy Jacque Blunt Smooth Spine Wire Fixation Nonsterile - [id number] Explanted:Qty: 6 on 05/15/2020 at [facility] Left: Spine Lumbar Magy Lea 210-1003-2 / / Procedures Procedure Name Priority Date/Time Associated Diagnosis Comments SCREENING MAMMOGRAM Routine 05/21/2014 1 :44 PM CDT from Last 3 Months or Most Recently Relevant to Health Maintenance Results * Screening Mammogram (05/21/2014 1:44 PM CDT) Anatomical Region Laterality Modality Breast N/A Mammography 05/21/2014 1:44 PM CDT Narrative 05/21/2014 1:51 PM CDT ALLAN YANG M.D. FINAL REPORT ACC# Date Time Exam [id number] May 21, 2014 13:44:00 WMM [id number] Screening Mamm Bilat 2v Technologist(s): Teri Krishnan; ; EXAMINATION: Mammogram Technique: Bilateral Full-Field Digital Screening Mammogram was performed. Views obtained: bilateral craniocaudal; bilateral craniocaudal implant displaced; bilateral mediolateral oblique; and bilateral mediolateral oblique implant displaced. Computer Aided Detection was performed with Crowdasaurus.3 version 9.3. Mammogram Findings: There are scattered [...] M.D. FINAL REPORT ACC# Date Time Exam [id number] May 21, 2014 13:44:00 WMM [id number] Screening Mamm Bilat 2v Technologist(s): Teri Krishnan; ; EXAMINATION: Mammogram Technique: Bilateral Full-Field Digital Screening Mammogram was performed. Views obtained: bilateral craniocaudal; bilateral craniocaudal implant displaced; bilateral mediolateral oblique; and bilateral mediolateral oblique implant displaced. Computer Aided Detection was performed with Crowdasaurus.3 version 9.3. Mammogram Findings: There are scattered fibroglandular densities. There is no suspicious abnormality in either breast. IMPRESSION: Annual screening mammography is recommended. OVERALL FINAL ASSESSMENT: BI-RADS CATEGORY 1: Negative. Requested By: Dictated By: ALLAN YANG M.D. on May 21 2014 1:51P This document has been electronically signed by: ALLAN YANG M.D. on May 21 2014 1:51P [facility] Provider MD BAL MAMMO PROCEDURES Connie l Result from Last 3 Months or Most Recently Relevant to Health Maintenance Insurance [facility] AETNA MEDICARE [facility] AETNA MEDICARE AETNA MEDICARE Advance Directives For more information, please contact: [phone] * Full Code (Latest Code Status on File) Date Activated Date Inactivated Comments 05/15/2020 5:35 PM 05/16/2020 5:59 PM * Full Code Date Activated Date Inactivated Comments 02/26/2020 6:31 PM 02/27/2020 7:12 PM * Full Code Date Activated Date Inactivated Comments 02/25/2020 3:59 PM 02/26/2020 6:31 PM Care Teams Production Laborer Relationship Specialty Start Date End Date Viral Harrison MD [address] [address] PCP - General Family Medicine 09/13/22 Sukumar Leslie MD [address] [place] [address] Consulting Physician Cardiology 02/27/20 Miscellaneous, Not In File 02/27/20 [place] [address] [place] [address] Surgeon Neurosurgery 02/27/20
--- OUTSIDE RECORDS SUMMARY | 2024-12-10 15:56 | XMS_ITS | CONTINUITY OF CARE DOCUMENT ---
Author Name arlette chong Address Unknown Organization [facility] Address [address] [place] [address] Phone [phone] Care Team Providers Care Ediphone Operator Name Role Phone Anuj DUNBAR, Sukumar Unavailable Sukuamr Leslie MD Unavailable BRANDY MELVIN MD Unavailable PROBLEMS Condition Status Date Provider Notes Hypertension;neg duplex;mild coral on angio active Sukumar Leslie MD Overweight active Sukumar Leslie MD Sleep apnea;non compliant completed 05/24 - Sukumar Leslie MD Headache, chronic active Sukumar Leslie MD FAMILY HISTORY OF HEART DISEASE active Steffi Leslie MD had byapss Hypothyroidism completed - Sukumar Leslie MD Screening active Sukumar Leslie MD Hyperlipidemia;with high crp active Sukumar Leslie MD Shortness of breath completed - Sukumar Leslie MD B12 deficiency active Sukumar Leslie MD Vitamin D deficiency active Sukumar Montano Renal artery stenosis active Sukumar Leslie MD IRON DEFICIENCY active Sukumar Leslie MD Exposure to SARS-associated coronavirus;NEG SWAB active Sukumar Leslie MD Diastolic CHF active Sukumar Leslie MD C difficile colitis active Sukumar Leslie MD Anemia, iron deficiency active Sukumar miller MD Hypertriglyceridemia active Sukumar Montano Tobacco use, quit active Sukumar Leslie MD Bradycardia and low bp with geneal anetheisa;nml tsh active Sukumar Leslie MD Nerve pain active Sukumar Leslie MD ENCOUNTERS Date Type Provider Location Encounter Diag nosis - In-person encounter Office Visit Sukumar Leslie MD [facility] Exposure to SARS-associated coronavirus;NEG SWABNerve pain - In-person encounter Office Visit Sukumar Leslie MD [facility] Hypertension;neg duplex;mild coral on angioHyperlipidemia;with high crpRenal artery stenosisIRON DEFICIENCYExposure to SARS-associated coronavirus;NEG SWABDiastolic CHFC difficile colitisAnemia, iron deficiencyHypertriglyceridemiaTobacco use, quitBradycardia and low bp with geneal anetheisa;nml tsh - In-person encounter Office Visit Sukumar Leslie MD [place] [facility] Hypertension;neg duplex;mild coral on angioSleep apnea;non compliantHypothyroidismShortness of ozupxyZ62 deficiencyVitamin D deficiency - In-person encounter Office Visit Sukumar Leslie MD [place] Hypertension;neg duplex;mild coral on angioOverweightHeadache, chronicFAMILY HISTORY OF HEART DISEASEScreeningHyperlipidemia;with high crp VITAL SIGNS Date Observation Value Provider Body Mass Index (Ratio) 26.95 kg/m2 Steffi Leslie MD weight E&M 157 [lb_av] Sukumar Montano blood pressure, diastolic 80 mm[Hg] Brayan Leslie MD blood pressure, systolic 130 mm[Hg] Femi Leslie MD Body Mass Index (Ratio) 27.29 kg/m2 Steffi Leslie MD blood pressure, diastolic 104 mm[Hg] Fe brielle Montaño blood pressure, systolic 153 mm[Hg] Fel icia Danyel oxygen saturation, oximetry 98 % Mahi Montaño respiratory rate E&M 16 /min Mahi Montaño pulse rate 84 /min Mahi Montaño weight E&M 159 [lb_av] Mahi Montaño height E&M 64 [in_i] Mahi Montaño Body Mass Index (Ratio) 27.63 kg/m2 Steffi Leslie MD blood pressure, diastolic 70 mm[Hg] Da che Anthony blood pressure, systolic 122 mm[Hg] Dac ia Anthony oxygen saturation, oximetry 96 % Leisa Anthony respiratory rate E&M 16 /min Leisa V oss pulse rate 76 /min Leisa Anthony weight E&M 161 [lb_av] Leisa Anthony height E&M 64 [in_i] Leisa Anthony blood pressure, diastolic 80 mm[Hg] Ca ndace Clare blood pressure, systolic 130 mm[Hg] Can dace Clare Body Mass Index (Ratio) 27.08 kg/m2 Steffi Leslie MD blood pressure, resting Yes Janis Carrero blood pressure, diastolic 91 mm[Hg] Maral Carrero blood pressure, systolic 133 mm[Hg] Татьяна Carrero oxygen saturation, oximetry 98 % Carly Carrero respiratory rate E&M 18 /min Rosa Carrero pulse rate 78 /min Carly hanks weight E&M 157.8 [lb_av] Carly lynne height E&M 64 [in_i] Carly hanks ALLERGIES Allergy Name Onset Date Reaction Criticality Status SULFA High Criticality active HISTORY OF MEDICATION USE Medication Status Instructions Dates Provider Indications Com ments ASPIRIN 81 81 MG ORAL TABLET DELAYED RELEASE active One Tab By Mouth Daily Sukumar Leslie MD VITAMIN B-12 1000 MCG ORAL TABLET active One tablet daily Sukumar Leslie MD LIPITOR 40 MG ORAL TABLET active ONE TAB. DAILY Sukumar Leslie MD FERROUS SULFATE 325 (65 FE) MG ORAL TABLET active ONE PER DAY Sukumar Leslie MD METHOCARBAMOL 750 MG ORAL TABLET active TAKE 1 TABLET BY MOUTH EVERY 8 TO 12 HOURS NEEDED Sukumar Leslie MD #75, 25 days supply, Prescribed by JANEL KLEIN, Filled 01/02/2020 HYDROCHLOROTHIAZIDE 12.5 MG ORAL TABLET active TAKE 1 TABLET BY MOUTH ONCE DAILY Sukumar Leslie MD #90, 90 days supply, Prescribed by BRANDY MELVIN, Filled 01/23/2020 GABAPENTIN 600 MG ORAL TABLET active TAKE 1 TABLET BY MOUTH EVERY 8 TO 12 HOURS NEEDED Sukumar Leslie MD #60, 20 days supply, Prescribed by JANEL KLEIN, Filled 01/28/2020 HYDROCODONE-ACETAMINO PHEN 7.5-325 MG ORAL TABLET active TAKE 1 TABLET BY MOUTH EVERY 6 TO 8 HOURS NEEDED Sukumar Leslie MD #90, 23 days supply, Prescribed by JANEL KLEIN, Filled 02/10/2020 VALSARTAN 160 MG ORAL TABLET active TAKE 1 TABLET BY MOUTH ONCE DAILY Sukumar Leslie MD #30, 30 days supply, Prescribed by BRANDY MELVIN, Filled 02/14/2020 CARVEDILOL 25 MG ORAL TABLET active TAKE 1 TABLET BY MOUTH TWICE DAILY Sukumar Leslie MD #60, 30 days supply, Prescribed by BRANDY MELVIN, Filled 02/15/2020 ESTRADIOL 1 MG ORAL TABLET active TAKE 1 TABLET BY MOUTH ONCE DAILY Sukumar Leslie MD #60, 60 days supply, Prescribed by BRANDY MELVIN, Filled 03/06/2020 VITAMIN D3 5000 UNIT ORAL CAPSULE completed ONE TAB BY MOUTH DAILY - Sukumar Leslie MD VITAMIN B-12 1000 MCG ORAL TABLET completed One tablet daily - Sukumar Leslie MD DIOVAN HCT 320-25 MG ORAL TABLET completed ONE TAB. DAILY - Sukumar Leslie MD VITAMIN D3 1.25 MG (37629 UT) ORAL CAPSULE active one tab twice a month Sukumar Leslie MD EDARBYCLOR 40-25 MG ORAL TABLET completed daisonu - Krish Freeman RN COREG 25 MG ORAL TABLET completed ONE TAB. TWICE DAILY - Sukumar Leslie MD [id number]-C ODEINE 12-236-91-30 MG ORAL CAPSULE completed 3 times daily - Leisa Cruz GABAPENTIN 300 MG ORAL CAPSULE completed 3 times daily - Sukumar Leslie MD DICLOFENAC POTASSIUM 50 MG ORAL TABLET completed 3 times daily as needed - Sukumar Leslie MD HYDROCODONE-ACETAMINO PHEN 5-325 MG ORAL TABLET completed 1 tab every 12 hours as needed - Sukumar Leslie MD SOCIAL HISTORY Date Observation Value Provider social history reviewed E&M revi ewed - no changes required Sukumar Leslie MD quit smoking, stage quit Sukumar major MD social history E&M S moking History: P atient currently smokes every day. P atient has been counseled to quit. Sukumar Leslie MD social history reviewed E&M revi ewed - no changes required Sukumar Leslie MD smoking/tobacco cess ation, patient education and counseling yes Mahi Montaño smoking status Current every day smoker F norma Montaño social history E&M S moking History: P atient currently smokes every day. P atient has been counseled to quit. Sukumar Leslie MD social history reviewed E&M revi ewed - no changes required Sukumar Leslie MD smoking/tobacco cess ation, patient education and counseling yes Leisa Cruz smoking status Current every day smoker D acsharan Cruz smoking status Current every day smoker C trina Sparks smoking/tobacco cess ation, patient education and counseling yes Sukumar Leslie MD smoking status Current every day smoker H cori Leslie MD social history E&M S moking History: P melisa currently smokes every day. Sukumar Leslie MD social history reviewed E&M revi ewed - no changes required Sukumar Leslie MD number of years as a smoker 30 a Carly Carrero smoking history, tot al pack/day 0.5 Carly Carrero FUNCTIONAL STATUS Date Observation Value Provider periodic limb movement index absent (0) Mona Sparks FAMILY HISTORY Family Member Condition Father Family History of Co ronary Artery Disease: INSURANCE PROVIDERS Payer name Policy type / Coverage type [employer] party ID [employer] [facility] Other [id number] ADVANCE DIRECTIVES Name Date DISCUSSED - NO DECISION MADE TREATMENT PLAN Date Name Performer TeleHealth: H er updated medication list for this problem includes: Hydrochlorothiazide 12.5 Mg Oral Tablet (Hydrochlorothiazide) ..... Take 1 tablet by mouth once daily Valsartan 160 Mg Oral Tablet (Valsartan) ..... Take 1 tablet by mouth once daily Carvedilol 25 Mg Oral Tablet (Carvedilol) ..... Take 1 tablet by mouth twice daily BP today: 130/80 P rior BP: 153/104 (03/09/2020) Prior 10 Yr Risk Heart Disease: Not enough information (06/13/2017) Sukumar Leslie MD TeleHealth Sukumar Leslie MD TeleHealth: b ilalt coral 30% Sukumar Leslie MD TeleHealth Sukumar Leslie MD TeleHealth:1552 Sukumar Leslie MD TeleHealth Sukumar Leslie MD TeleHealth Sukumar Leslie MD TeleHealth Sukumar Leslie MD TeleHealth:b12 on rx Sukumar moss MD TeleHealth:neg tele n ml cath, high dd with neg vd and ct pe o sa resloved with surgery and wt loss n ml tsh n ml pft nml caslxiu score, stress late pos Sukumar Leslie MD TeleHealth: t shakira neg Sukumar Leslie MD :tele neg Sukumar Leslie MD Cardiology Sukumar Leslie MD Cardiology Sukumar Leslie MD Cardiology Sukmuar Leslie MD Cardiology Sukumar Leslie MD Cardiology: H er updated medication list for this problem includes: Lipitor 40 Mg Oral Tablet (Atorvastatin calcium) ..... One tab. daily Sukumar Leslie MD Cardiology Sukumar Leslie MD Cardiology:up to date o n coloan Sukumar Leslie MD Cardiology:bilalt coral 30% Sukumar Leslie MD Cardiology:nml cath, high dd with neg vd and ct pe o sa resloved with surgery and wt loss n ml tsh n ml pft nml caslxiu score, stress late pos Sukumar Leslie MD Cardiology Sukumar Leslie MD Cardiology Sukumar Leslie MD Cardiology follow up:better with anjana Leslie MD Cardiology follow up Sukumar moss MD Cardiology follow up : B P today: 122/70 P rior BP: 130/80 (06/13/2017) Prior 10 Yr Risk Heart Disease: Not enough information (06/13/2017) Her updated medication list for this problem includes: Diovan Hct 320-25 Mg Tabs (Valsartan-hydrochlorothiazide) ..... One tab. daily Coreg 25 Mg Tabs (Carvedilol) ..... One tab. twice daily Sukumar Leslie MD Cardiology follow up :santos resloved with surgery and wt loss n ml tsh n ml pft l dl 123 n ml caslxiu score, stress late pos Sukumar Leslie MD Cardiology:will adjust meds Steffi Leslie MD Cardiology:ct head neg per pt Schmidt roznia Leslie MD Cardiology:needs ddentistminnie MD Cardiology:nml tsh Sukumar Leslie MD Date Name RPR (MONITOR) W/REFL TITER FOLATE, SERUM LIPID PANEL VITAMIN B12 Mobile Cardiac Tele VITAMIN B12 FERRITIN BASIC METABOLIC PANE L W/EGFR CT, Coronary Calcium Score IRON AND TOTAL IRON BINDING CAPACITY FERRITIN STR - Routine DLCO - 34128 FRC - 83616 FVC - 23638 Complete Echo Renal Artery Duplex VITAMIN B12 VITAMIN D, 25-HYDROX Y, LC/MS/MS Sleep Study Home HISTORY OF PROCEDURES Procedure Date Procedure Name Provider Procedure Notes S tatus Event Monitor Sukumar Leslie MD compl eted SNOMED-CT: 411208389 [id number] Current Medications Documented Sukumar Leslie MD completed Stress EKG Sukumar Leslie MD complete d CT- Coronary CA score Sukumar Leslie MD completed FVC / MVV - 79773 Sukumar Leslie MD c ompleted FRC - 21612 Sukumar Leslie MD complet ed SpO2 - 54930 Sukumar Leslie MD comple janay DLCO - 52597 Sukumar Leslie MD comple janay EKG Sukumar Leslie MD complete d SNOMED-CT: [id number] [id number] Current Medications Documented Sukumar Leslie MD completed
--- OUTSIDE RECORDS SUMMARY | 2024-12-10 15:57 | XMS_ITS ---
Author Organization [facility] Address [address] [place] [address] MONIKA Hallman [address] Care Team Providers Care Kiln Cleaner Name Role Phone KATHERINE DUNBAR, KEISHA Primary Care Provider UnavailParam Marcial Unavailable [phone] MD HERO, OSCAR Unavailable Unavailable ALLERGIES Allergen [...] in quitting? Not ready to thony t VITAL SIGNS Blood pressure systolic 136 mm Hg 06/26/20 24 Blood pressure diastolic 88 mm Hg 024 Heart Rate 60 /min 06/26/2024 Respiratory Rate 18 /min 06/26/2024 Height 5 ft 4 in in 06/26/2024 Weight 144 lbs 06/26/2024 BMI 24.71 kg/m2 06/26/2024 Encounters Encounter Location Date Provider Diagnosis [facility] [address] [place] [id number] 06/26/2024 Param Fields Postlaminectomy syndrome, not elsewhere classified M96.1 ; Radiculopathy, lumbar region M54.16 ; Other intervertebral disc degeneration, lumbar region M51.36 ; Sacroiliitis, not elsewhere classified M46.1 ; Chronic pain syndrome G89.4 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 [place]'s, [place]'s and [place]'s are positive bilaterally. There is [...] and Follow-up: Follow-up Plan documen janay:: Yes [facility] Quality 2020: MIPS Documented:: Compliant
--- OUTSIDE RECORDS SUMMARY | 2024-12-10 15:57 | XMS_ITS ---
Author Organization [facility] Address [address] [place] [address] Care Team Providers Care Softball Winder Name Role Phone KATHERINE DUNBAR, KEISHA Primary Care Provider Param Pichardo Unavailable [phone] MD HERO, OSCAR Unavailable Unavailable REASON FOR VISIT FOLLOW UP Encounters Encounter Location Date Provider Diagnosis [facility] [address] [place] [address] [place] [address] 05/21/2024 Param Fields PLAN OF TREATMENT No Information
== END 2024-12-10 14:14 | disposition home or self-care (01) ==
LOC: ANHIMG 14:17
DX: Z12.31 Encounter for screening mammogram for malignant neoplasm of breast (principal); Z98.82 Breast implant status
CPT/HCPCS: 77063; 77067

== ENCOUNTER 2025-05-13 09:50 | Outpatient (CLI) | payer MEDICARE, SELFPAY ==
--- NOTE | ~2025-05-13 | XR_ITS ---
EXAMINATION: XR shoulder LT min 2V, 05/13/2025 9:55 CDT HISTORY: M75.42 - Impingement syndrome of left shoulder COMPARISON: No comparisons available. Findings: No acute fracture or malalignment. No significant degenerative changes. Soft tissues unremarkable. Impression: No acute fracture or malalignment. Reviewed, dictated and finalized at location A. Impression: No acute fracture or malalignment.
== END 2025-05-13 09:51 | disposition home or self-care (01) ==
LOC: MICIMG 09:51
PROVIDERS: PCP Physician Assistant Surgical; Visit Provider Physician Assistant Surgical
DX: M75.42 Impingement syndrome of left shoulder (principal)
CPT/HCPCS: 73030

== ENCOUNTER 2025-05-30 01:11 | Day surgery (SDC) | payer MEDICARE, SELFPAY ==
--- OUTSIDE RECORDS SUMMARY | 2024-04-10 08:45 | XMS_ITS ---
Author Organization [facility] Address [address] [place] [address] [place] [address] Care Team Providers Care Braille Duplicating Machine Operator Name Role Phone KATHERINE DUNBAR, KEISHA Primary Care Provider UnavailParam Marcial Unavailable [phone] MD HERO, OSCAR Unavailable Unavailable ALLERGIES Allergen (clinical drug ingredient) Drug/Non Drug Allergy documented on EMR Reaction Allergy Type Onset Date Status sulfamethoxazole / trimethoprim Bactrim asthma/SOB Drug Allergy Active Biaxin Unknown Drug Allergy Active celecoxib Celebrex asthma/SOB Drug Allergy Active fentanyl fentaNYL hypotension Drug Allergy Activ e morphine Morphine Unknown Drug Allergy Active Substance with sulfonamide structure and antibacterial mechanism of action (substance) Sulfa Antibiotics anaphylaxis Drug Allergy Active REASON FOR VISIT FOLLOW UP- ALICIA AWARE MEDICATIONS Medication SIG (Take, Route, Frequency, Duration) Notes Start Date End Date Status HYDROcodone-Acetaminophen 7.5-325 MG 1 tablet as needed Oral every 12 hours Active Topiramate 50 MG 1 tablet Oral Once a day Active Valsartan-hydroCHLOROthiazid e 160-12.5 MG 1 tablet Oral Once a day Active Chlorhexidine Gluconate 4 % as directed Externally prior to surgery for 2 days Active Doxycycline Hyclate 100 MG 1 tablet Oral ly twice a day for 5 days Active Aspirin 81 MG 1 tablet Orally Once a day for 30 day(s) Active Estradiol 1 MG 1 tablet Orally Once a day Active Carvedilol 25 MG 1 tablet with food Orally Twice a day Active Cyclobenzaprine HCl 5 MG 1 tablet at bed time as needed Oral Once a day Active Encounters Encounter Location Date Provider Diagnosis [facility] [address] [facility] [place] [address] 04/10/2024 Param Fields Postlaminectomy syndrome, not elsewhere classified M96.1 ; Radiculopathy, lumbar region M54.16 ; Other intervertebral disc degeneration, lumbar region M51.36 ; Sacroiliitis, not elsewhere classified M46.1 ; Chronic pain syndrome G89.4 and senior care (current) use of non-steroidal anti-inflammatories (NSAID) Z79.1 ASSESSMENTS Encounter Date Diagnosis Assessment Notes Treatment Notes Treatment Clinical Notes Section Notes 04/10/2024 Postlaminectomy syndrome, not elsewhere classified (ICD-10 - M96.1) 04/10/2024 Radiculopathy, lumbar region (ICD-10 - M54.16) 04/10/2024 Other intervertebral disc degeneration, lumbar region (ICD-10 - M51.36) 04/10/2024 Sacroiliitis, not elsewhere classified (ICD-10 - M46.1) 04/10/2024 Chronic pain syndrome (ICD-10 - G89.4) 04/10/2024 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 PERRL. The oropharynx is clear Neck: There is full range of motion of the cervical spine Heart: Regular rate and rhy thm Chest: Clear to auscultatio n bilaterally Abdomen: Soft and benign with normal bowel sounds throughout Musculoskeletal and Extremities: There i s tenderness to palpation over the bilateral L2-3 through L5-S1 facet joints. Extension and lateral rotation of the lumbar spine reproduces the patient's typical axial low back pain. [place]'s, [place]'s and [place]'s are positive bilaterally. There is tenderness to palpation over the bilateral sacroiliac joints and greater trochanters. There is tenderness to palpation over the bilateral lumbar paraspinal muscles Neurological: There is positive st raight leg raising on the left. There is 4 out of 5 strength at the left hip flexors, knee extensors, anterior tibialis and EHL. Otherwise, there are no focal strength deficits in the remainder of the left lower extremity and entire right lower extremity Skin: Clean, dry and intac t. Incision sites are well approximated and healing well. No sign of redness, warmth, drainage or tenderness Psychiatric: Mood and affect are normal History and Physical Notes * HPI (History of Present Illness) Category Sub-Category Detail Notes Category Not es Pain Management Radiographic Imaging MRI lumbar spine done on 01/26/23 demonstrates DDD from T10-11 through L3-4. There is an anterior and posterior interbody fusion at L4-5 and L5-S1. At L3-4 there is central canal and right foraminal stenosis Assessment and Follow-up: Follow-up Plan documen janay:: Yes MIPS Quality 2020: MIPS Documented:: Compliant
--- OUTSIDE RECORDS SUMMARY | 2024-04-23 06:30 | XMS_ITS ---
Author Organization [facility] Address [address] [place] [address] [place] [address] Care Team Providers Care Laboratory Sampler Name Role Phone KATHERINE DUNBAR, KEISHA Primary Care Provider UnavailParam Marcial Unavailable [phone] MD HERO, OSCAR Unavailable Unavailable ALLERGIES Allergen [...] Drug Allergy Active REASON FOR VISIT FOLLOW UP, Left > Right Low Back Pain, Left = Right Lower Extremity Pain, SCS Reprogram MEDICATIONS Medication SIG (Take, Route, Frequency, Duration) Notes Start Date End Date Status Valsartan-hydroCHLOROthiazid e 160-12.5 MG 1 tablet Oral Once a day Active HYDROcodone-Acetaminophen 7.5-325 MG 1 tablet as needed Oral every 12 hours Active Topiramate 50 MG 1 tablet Oral Once a day Active Chlorhexidine Gluconate 4 % as directed Externally prior to surgery for 2 days Active Doxycycline Hyclate 100 MG 1 tablet Oral ly twice a day for 5 days Active Carvedilol 25 MG 1 tablet with food Orally Twice a day Active Cyclobenzaprine HCl 5 MG 1 tablet at bed time as needed Oral Once a day Active Aspirin 81 MG 1 tablet Orally Once a day for 30 day(s) Active Estradiol 1 MG 1 tablet Orally Once a day Active VITAL SIGNS Blood pressure systolic 138 mm Hg 04/23/20 24 Blood pressure diastolic 85 mm Hg 024 Heart Rate 53 /min 04/23/2024 Respiratory Rate 18 /min 04/23/2024 Height 5 ft 4 in in 04/23/2024 Weight 144 lbs 04/23/2024 BMI 24.71 kg/m2 04/23/2024 Encounters Encounter Location Date Provider Diagnosis [facility] [address] [place] [address] [place] [address] 04/23/2024 Param Fields Postlaminectomy syndrome, not elsewhere classified M96.1 ; Radiculopathy, lumbar region M54.16 ; Other intervertebral disc degeneration, lumbar region M51.36 ; Sacroiliitis, not elsewhere classified M46.1 ; Chronic pain syndrome G89.4 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 She currently denies a need for any injections or interventions at this time. She would like to return to the office in 1 month for follow-up and reevaluation of her pain at that time. 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 Fields. I have discussed and reviewed all of the pertinent history, physical examination findings and diagnostic imaging results with him. As a result of our discussion, Dr. Fields has determined the above assessment and directed the treatment plan. This note was dictated using voice recognition software and therefore inadvertent errors may have occurred. This note was dictated by DEMARCUS Garrison PLAN OF TREATMENT Treatment Notes Assessment Notes Radiculopathy, lumbar region The patient 's SCS was interrogated reprogrammed in the office today with improved axial low back and bilateral lower extremity neuropathic pain coverage with good paresthesia overlap. She currently denies a need for any injections or interventions at this time. She would like to return to the office in 1 month for follow-up and reevaluation of her pain at that time. Other The above-named brandi ent was evaluated in conjunction with Dr. Fields. I have discussed and reviewed all of the pertinent history, physical examination findings and diagnostic imaging results with him. As a result of our discussion, Dr. Fields has determined the above assessment and directed the treatment plan. This note was dictated using voice recognition software and therefore inadvertent errors may have occurred. This note was dictated by DEMARCUS Garrison Next Appt Details Follow Up: 4 Weeks OPV, Reas on: Progress Notes * Examination Category Sub-Category Detail [...] patient's typical axial low back pain. [place]'s, [place]'s and [place]'s are positive bilaterally. There is [...] and intac t. Incision sites are well healed Psychiatric: Mood and affect are normal History [...] and Follow-up: Follow-up Plan documen janay:: Yes [facility] Quality 2020: MIPS Documented:: Compliant
--- OUTSIDE RECORDS SUMMARY | 2024-05-21 07:45 | XMS_ITS ---
Author Organization [facility] Address [address] [facility] [place] [address] Care Team Providers Care Auto Claim Representative Name Role Phone KATHERINE DUNBAR, KEISHA Primary Care Provider Param Pichardo Unavailable [phone] MD HERO, OSCAR Unavailable Unavailable REASON FOR VISIT FOLLOW UP Encounters Encounter Location Date Provider Diagnosis [facility] [address] [facility] [place] [address] [place] [address] 05/21/2024 Param Fields PLAN OF TREATMENT No Information
--- OUTSIDE RECORDS SUMMARY | 2024-06-26 05:30 | XMS_ITS ---
Author Organization [facility] Address [address] [place] [address] [place] [address] Care Team Providers Care Fleet Dispatch Manager Name Role Phone KATHERINE DUNBAR, KEISHA Primary Care Provider UnavailParam Marcial Unavailable [phone] MD HERO, OSCAR Unavailable Unavailable ALLERGIES Allergen [...] Allergy Active REASON FOR VISIT FOLLOW UP, Right = Left Low Back Pain, SCS Reprogram MEDICATIONS Medication SIG (Take, Route, Frequency, Duration) Notes Start Date End Date Status Valsartan-hydroCHLOROthiazid e 160-12.5 MG 1 tablet Oral Once a day Active Chlorhexidine Gluconate 4 % as directed Externally prior to surgery for 2 days Active Acyclovir 800 MG TAKE 1 TABLET (800 M G) BY MOUTH 2 TIMES PER DAY NEEDED Oral for 30 Active Doxycycline Hyclate 100 MG 1 tablet Oral ly twice a day for 5 days Active Meloxicam 7.5 MG TAKE ONE TABLET BY MOUTH TWICE DAILY with meals Oral for 30 Active HYDROcodone-Acetaminophen 7.5-325 MG 1 tablet as needed Oral every 12 hours Active Topiramate 50 MG 1 tablet Oral Once a day Active Estradiol 1 MG 1 tablet Orally Once a day Active Carvedilol 25 MG 1 tablet with food Orally Twice a day Active Cyclobenzaprine HCl 5 MG 1 tablet at bed time as needed Oral Once a day Active Aspirin 81 MG 1 tablet Orally Once a day for 30 day(s) Active SOCIAL HISTORY Tobacco Use: Social History Observation Description Date Details (start date - stop date) Current Smoker NA - NA Sex Assigned At : Social History Observation Description Sex Assigned At Unknown Tobacco Use/Smoking Question Answer Notes Are you a current smoker How often do you smoke cigarettes? every day Are you interested in quitting? 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 She is with one child. she smokes 1/2 pack of cigarettes daily for the last 30 years. She denies alcohol or illicit drug abuse. VITAL SIGNS Blood pressure systolic 136 mm Hg 06/26/20 Blood pressure diastolic 88 mm Hg 024 Heart Rate 60 /min 06/26/2024 Respiratory Rate 18 /min 06/26/2024 Height 5 ft 4 in in 06/26/2024 Weight 144 lbs 06/26/2024 BMI 24.71 kg/m2 06/26/2024 Encounters Encounter Location Date Provider Diagnosis [facility] [address] [place] [address] 06/26/2024 Param Fields Postlaminectomy syndrome, not elsewhere classified M96.1 ; Radiculopathy, lumbar region M54.16 ; Other intervertebral disc degeneration, lumbar region M51.36 ; Sacroiliitis, not elsewhere classified M46.1 ; Chronic pain syndrome G89.4 and oil heaterman (current) use of non-steroidal anti-inflammatories (NSAID) Z79.1 ASSESSMENTS Encounter Date Diagnosis Assessment Notes Treatment Notes Treatment Clinical Notes Section Notes 06/26/2024 Postlaminectomy syndrome, not elsewhere classified (ICD-10 - M96.1) 06/26/2024 Radiculopathy, lumbar region (ICD-10 - M54.16) The [...] reevaluation of her pain at that time. 06/26/2024 Other intervertebral disc degeneration, lumbar region (ICD-10 - M51.36) 06/26/2024 Sacroiliitis, not elsewhere classified (ICD-10 - M46.1) 06/26/2024 Chronic pain syndrome (ICD-10 - G89.4) 06/26/2024 oil heaterman (current) use of non-steroidal anti-inflammatories (NSAID) (ICD-10 - Z79.1) 06/26/2024 Other The above-named patient was evaluated in [...] occurred. This note was dictated by DEMARCUS Garrison. Total Time Spent with Patient and Medical Decision Makin minutes PLAN OF TREATMENT Treatment Notes Assessment Notes [...] pain at that time. Other The above-named patient was evaluated in [...] occurred. This note was dictated by DEMARCUS Garrison. Total Time Spent with Patient and Medical Decision Makin minutes Next Appt Details Follow Up: 4 Weeks [...] patient's typical axial low back pain. [place]'s, [place]'s and [place]'s are positive bilaterally. There is [...] foraminal stenosis Assessment and Follow-up: Follow-up Plan documegloria janay:: Yes MIPS Quality 2020: MIPS Documented:: Compliant
[2025-05-19 15:27] VITALS: BMI 25.4
--- NOTE | 2025-05-19 15:54 | PC.NURSE ---
Report to the Outpatient Waiting Room, entrance under the green pavilion located off [facility], at time _10:00AM on date Mon05/30/25 . Planned Procedure Time: _12:00AM .? Time changes happen often and if your time is changed the preop area will call you the afternoon before. - You and your visitor will be asked to self-screen and do not enter if you have any COVID symptoms. Please call surgeon if you need to reschedule. - A mask is optional within the hospital at this time. Patients may have clear liquids (water, carbonated beverages, clear teas, apple juice) until 3 hours prior to surgery with a maximum of 20 ounces. - No food from midnight until time of surgery and no smoking, or chewing tobacco (or any form of nicotine). No chewing gum, candy or mints. - Take only the following medications with a SIP of water on the morning of surgery: __COREG, PAIN PILL DO NOT STOP ANY OF YOUR OTHER PRESCRIPTION MEDICATIONS PRIOR TO SURGERY EXCEPT THE FOLLOWING Hold all vitamins and supplements for 3 days per anesthesiologist. Medications to discontinue per physician N/A Date to take last dose Please no make-up, nail sri lankan, hairspray, perfume, deodorant, or body powder the day of surgery.? No jewelry (including any body piercings) or valuables the day of surgery, leave them at home.? Please take a shower or bath the night before, or the morning of, surgery with an antibacterial soap.? Wear comfortable, loose fitting clothing.? - Jewelry must be removed prior to entering the operating room.? Rings and piercings that are not removed may be cut off. - The hospital will not accept responsibility for valuables.? - Please leave all valuables, including medications, at home the day of surgery. If you are going home after surgery, a licensed taxi driver supervisor must drive you home.? - NO public transportation without another adult if you receive anesthesia. - We recommend that an adult stay with you for 24 hours following discharge. - We also recommend that you do not drive, make important decision, drink alcoholic beverages, or take any drugs that were not prescribed by your health care provider for at least 24 hours after your discharge time. Follow any additional instructions given to you from your surgeon. Telephone instructions given to __CARLEENE and asked if any additional questions and then verbalized understanding.
[2025-05-30] VITALS (9 sets, daily range): BP systolic 117–145; BP diastolic 65–87; PULSE 50–75; RESP 12–20; TEMP 36.3–36.6; O2SAT 96–100
--- OUTSIDE RECORDS SUMMARY | 2025-05-30 01:14 | XMS_ITS | Clinical Summary ---
Author Organization [facility] Address [address] [place] [address] Care Team Providers Care Credit Control Administrator Name Role Phone Viral Harrison MD Primary [...] (1 of 1 - Standard series) 1970 Depression Screening 1981 Varicella Vaccines (1 of 2 - 13+ 2-dose series) 1982 Hepatitis B Vaccines (1 of 3 - 19+ 3-dose series) 1988 DTaP,Tdap,and Td Vaccines (1 - Tdap) 1990 AMB Pneumococcal 50+ yrs (1 of 1 - PCV) 12/11/2019 COVID-19 Vaccine (3 - 2024-2 6 season) 2025 08/17/2021, 07/27/2021 Influenza Vaccine (#1) 2025 06/19/2014 RSV Vaccines and 60 Years or Older (1 - 1-dose 75+ series) 2044 Zoster Series Vaccines Completed 0, 05/25/2020 HIB Vaccines Aged Out No longer eligi [...] this topic Insurance [employer] MEDICARE Care Teams Credit Control Administrator Relationship Specialty Start Date End Date Viral Harrison MD [address] [place] [id number] PCP - General Software Engineer Backend 08/18/22
--- OUTSIDE RECORDS SUMMARY | 2025-05-30 01:14 | XMS_ITS | Patient Health Record ---
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 She is with one child. she smokes 1/2 pack of cigarettes daily for the last 30 years. She denies alcohol or illicit drug abuse. 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 She is with one child. she smokes 1/2 pack of cigarettes daily for the last 30 years. She denies alcohol or illicit drug abuse. 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 She is with one child. she smokes 1/2 pack of cigarettes daily for the last 30 years. She denies alcohol or illicit drug abuse. 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 She is with one child. she smokes 1/2 pack of cigarettes daily for the last 30 years. She denies alcohol or illicit drug abuse. 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 She is with one child. she smokes 1/2 pack of cigarettes daily for the last 30 years. She denies alcohol or illicit drug abuse. 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 She is with one child. she smokes 1/2 pack of cigarettes daily for the last 30 years. She denies alcohol or illicit drug abuse. 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 She is with one child. she smokes 1/2 pack of cigarettes daily for the last 30 years. She denies alcohol or illicit drug abuse. 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 She is with one child. she smokes 1/2 pack of cigarettes daily for the last 30 years. She denies alcohol or illicit drug abuse. 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 She is with one child. she smokes 1/2 pack of cigarettes daily for the last 30 years. She denies alcohol or illicit drug abuse. 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 She is with one child. she smokes 1/2 pack of cigarettes daily for the last 30 years. She denies alcohol or illicit drug abuse. 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 She is with one child. she smokes 1/2 pack of cigarettes daily for the last 30 years. She denies alcohol or illicit drug abuse. 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 She is with one child. she smokes 1/2 pack of cigarettes daily for the last 30 years. She denies alcohol or illicit drug abuse. 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 She is with one child. she smokes 1/2 pack of cigarettes daily for the last 30 years. She denies alcohol or illicit drug abuse. PROBLEMS Problem Type ICD Code Onset Dates Problem Status W/U Status Risk SNOMED Code Notes Problem Fear of injections and transfusions (F40.231) Active confirmed Fear of medical treatment (572962987) Problem Chronic pain syndrome (G89.4) Active confirmed Chronic michael n syndrome (709440853) Problem Sacroiliitis, not elsewhere classified (M46.1) Active confirmed Solitary sacroiliitis (293345556) Problem Spondylosis without myelopathy or radiculopathy, lumbar region (M47.816) Active confirmed Lumbosacral spondylosis without myelopathy (64695004) Problem Spondylosis without myelopathy or radiculopathy, lumbosacral region (M47.817) Active confirmed Lumbosacral spondylosis without myelopathy (disorder) (65837315) Problem Other intervertebral disc degeneration, lumbar region (M51.36) Active confirmed Degeneration of lumbar intervertebral disc (19874691) Problem Radiculopathy, lumbar region (M54.16) Active confirmed Lumbar radiculopathy (678732404) Problem Postlaminectomy syndrome, not elsewhere classified (M96.1) Active confirmed Post-lami nectomy syndrome (62547631) 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) Active confirmed Long-term curre nt use of anticoagulant (976247301) 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) use of non-steroidal anti-inflammatorie s (NSAID) (Z79.1) Active confirmed [facility] current use of non-steroidal anti-inflammatory drug (950824888061179) VITAL SIGNS Heart Rate 60 /min 06/26/2024 Respiratory Rate 18 /min 06/26/2024 Blood pressure diastolic 88 mm Hg 06/26/2024 Height 5 ft 4 in in 06/26/2024 Blood pressure systolic 136 mm Hg 06/26/2024 Weight 144 lbs 06/26/2024 BMI 24.71 kg/m2 06/26/2024 Encounters Encounter Location Date Provider Diagnosis [facility] [address] [place] [address] [place] [address] 06/26/2024 Param Fields Postlaminectomy syndrome, not elsewhere classified M96.1 ; Radiculopathy, lumbar region M54.16 ; Other intervertebral disc degeneration, lumbar region M51.36 ; Sacroiliitis, not elsewhere classified M46.1 ; Chronic pain syndrome G89.4 and [facility] (current) use of non-steroidal anti-inflammatories (NSAID) Z79.1 [...] Chronic pain syndrome (ICD-10 - G89.4) 06/26/2024 [facility] (current) use of non-steroidal anti-inflammatories (NSAID) (ICD-10 [...] Coverage End Date [employer] MEDICARE [address] [place] [address] [id number] SARABJIT ZHU Self - patient is the insured MEDICAL (GENERAL) HISTORY Medical History History ICD Code Hypertension Surgical History Surgery Date(Month/Year) Hysterectomy L5-S1 Fusion 1997 Ulnar nerve release 1999 L3-L4 fusion--Dr. Mora 05/15/2020 Lumbar Hardware Removal--Dr. Mora 2022 Hospitalization History Reason Date(Month/Year) pneumonia 10/2019
--- OUTSIDE RECORDS SUMMARY | 2025-05-30 01:14 | XMS_ITS | Clinical Summary ---
Author Organization [facility] Medical Office Building A Address [address] [place] [address] Care Team Providers Care Physician Primary Care Sports Medicine Name Role Phone Sukumar Leslie MD Unavailable [phone] Miscellaneous, Not In File Unavailable Unava ilable Nura Mora MD Unavailable [phone] Viral Harrison MD Primary Care Provider [phone] Allergies Active Allergy Reactions Criticality Noted Date [...] (09/06/2022): Added automatically from request for surgery [id number] Spondylolisthesis at L4-L5 level 04/01/2020 Overview (04/01/2020): Added automatically from request for surgery [id number] Hypertension 02/25/2020 Elevated troponin level 02/25/2020 Overview (02/26/2020): Added automatically from request for surgery [id number] Hyperlipidemia Neuropathy Sleep apnea Overview (05/15/2020): uvulectomy/sinus [...] on file Legal Sex Female 5:51 PM FIRE ENGINEER Gender Identity Not on file Sexual Orientation Not on file Obstetrics History Last Filed Vital Signs Vital Sign Reading Time Taken Comments Blood Pressure 111/58 09/27/2022 1:30 PM FIRE ENGINEER Pulse 58 09/27/2022 1:33 PM FIRE ENGINEER Temperature 36.4 C (97.5 F) 09/27/2022 12:50 PM FIRE ENGINEER Respiratory Rate 15 09/27/2022 1:33 PM FIRE ENGINEER Oxygen Saturation 95% 09/27/2022 1:33 PM FIRE ENGINEER Inhaled Oxygen Concentration - - Weight 71.2 kg (157 lb) 11/08/2022 2:23 PM FIRE ENGINEER Height 162.6 cm (5' 4) 11/08/2022 2:23 PM FIRE ENGINEER Body Mass Index 26.95 11/08/2022 2:23 PM FIRE ENGINEER Plan of Treatment Health Maintenance Due Date Last Done Comments Colon Cancer Screening-Colonoscopy 1969 Depression Screening 1969 Hepatitis C Screening 1969 DTaP/Tdap/Td Vaccine (1 - Tdap) 1980 Hepatitis B Screening 12/11/1987 Regular Well Visit/Exam 18-64 12/11/1987 Pneumococcal vaccine <65 (1 of 2 - PCV) 1988 Breast Cancer Screening-Mammogram 05/21/2015 014 Zoster Vaccine (1 of 2) 12/11/2019 Influenza Vaccine (#1) 2025 06/19/2014 Medical Devices Implanted Type Area Computer Salesperson Retail Device Identifier Shelf Expiration Date Model / Serial / Lot [employer] Spinal Cord Stimulator Leads (Sc-2218-50) Implanted:Qty: 2 Lead Chest [employer] Neuro- SC-[id number] 0 / / [employer] Spinal Cord Stimulator (Sc-1216) Spinal Cord Stimulator Back [employer] Neuro- SC-1216 / / Description:Information not complete -- VM to patient 05/31/24, pt does not have MyChart [employer] [id number] Device Closure Angio-Seal Vip Bondek-Plus Polyglyd L70 Cm Od6 Fr Odsec.035 In Vascular - [id number] Implanted:Qty: 1 on 02/26/2020 by Zenon Reddy MD at [facility] [employer] [address] [employer] [id number] / / Filler Bone Void Nanoss Bioactive 3d Porous Calcium Phosphate L50 Mm X W25 Mm X H8 Mm 5 Ml Semirigid Resorable Scaffold Compressible Latex Free - [id number] Implanted:Qty: 1 on 05/15/2020 by Nura Mora MD at [facility] Left: Spine Lumbar [place] [employer] 06/07/2021 90-300-25 504 / / [id number] Medtronic Sofamor [place] [id number] Infuse 14mm 23mm Absorbable Sponge Sterile Water Syringe Needle - [id number] Implanted:Qty: 1 on 05/15/2020 by Nura Mora MD at [facility] Left: Spine Lumbar Medtronic Inc 05/04/2021 [id number] / / [id number] L Cage Tibond [id number] 5d - [id number] Implanted:Qty: 1 on 05/15/2020 by Nura Mora MD at [facility] Left: Spine Lumbar Spinal Elements [id number] 3 / / Screw Set Spine Zavation Nonstrl - [id number] Implanted:Qty: 6 on 05/15/2020 by Nura Mora MD at [facility] Explanted:Qty: 3 on 09/27/2022 by Nura Mora MD at [facility] Left: Spine Lumbar [employer] / / Screw Polyaxial Cannulated Reduction 6.5x35 - [id number] Implanted:Qty: 2 on 05/15/2020 by Nura Mora MD at [facility] Explanted:Qty: 1 on 09/27/2022 by Nura Mora MD at [facility] Left: Spine Lumbar [employer] 13R-6535 / / Screw Polyaxial Cannulated Reduction 6.5x45 - [id number] Implanted:Qty: 4 on 05/15/2020 by Nura Mora MD at [facility] Explanted:Qty: 2 on 09/27/2022 by Nura Mora MD at [facility] Left: Spine Lumbar [employer] 13R-6545 / / Lul Pre-Bent 6.0x80 - [id number] Implanted:Qty: 2 on 05/15/2020 by Nura Mora MD at [facility] Explanted:Qty: 1 on 09/27/2022 by Nura Mora MD at [facility] Left: Spine Lumbar Magy Lea 13-C080 / / Explanted Type Area Computer Salesperson Retail Device Identifier Shelf Expiration Date Model / Serial / Lot Magy Lea 210-1003-2 Magy Jacque Blunt Smooth Spine Wire Fixation Nonsterile - [id number] Explanted:Qty: 6 on 05/15/2020 at [facility] Left: Spine Lumbar Magy Lea 210-1003-2 / [...] M.D. FINAL REPORT ACC# Date Time Exam [id number] May 21, 2014 13:44:00 WMM 58117C Screening Mamm Bilat 2v Technologist(s): Teri Krishnan; ; EXAMINATION: Mammogram Technique: Bilateral Full-Field Digital Screening Mammogram was performed. Views obtained: bilateral craniocaudal; bilateral craniocaudal implant displaced; bilateral mediolateral oblique; and bilateral mediolateral oblique implant displaced. Computer Aided Detection was performed with Teqcycle.3 version 9.3. Mammogram Findings: There are scattered [...] M.D. FINAL REPORT ACC# Date Time Exam [id number] May 21, 2014 13:44:00 WMM 91146G Screening Mamm Bilat 2v Technologist(s): Teri Krishnan; ; EXAMINATION: Mammogram Technique: Bilateral Full-Field Digital Screening Mammogram was performed. Views obtained: bilateral craniocaudal; bilateral craniocaudal implant displaced; bilateral mediolateral oblique; and bilateral mediolateral oblique implant displaced. Computer Aided Detection was performed with Teqcycle.3 version 9.3. Mammogram Findings: There are scattered fibroglandular densities. There is no suspicious abnormality in either breast. IMPRESSION: Annual screening mammography is recommended. OVERALL FINAL ASSESSMENT: BI-RADS CATEGORY 1: Negative. Requested By: Dictated By: ALLAN YANG M.D. on May 21 2014 1:51P This document has been electronically signed by: LALAN YANG M.D. on May 21 2014 1:51P [facility] Provider MD BAL MAMMO PROCEDURES Connie l Result from Last 3 Months or Most Recently Relevant to Health Maintenance Insurance [facility] AETNA MEDICARE [facility] AETNA MEDICARE AETNA MEDICARE Advance Directives For more information, please contact: [phone] * Full Code (Latest Code Status on File) Date Activated Date Inactivated Comments 05/15/2020 5:35 PM 05/16/2020 5:59 PM * Full Code Date Activated Date Inactivated Comments 02/26/2020 6:31 PM 02/27/2020 7:12 PM * Full Code Date Activated Date Inactivated Comments 02/25/2020 3:59 PM 02/26/2020 6:31 PM Care Teams Physician Primary Care Sports Medicine Relationship Specialty Start Date End Date Viral Harrison MD [address] [place] [address] PCP - General Family Medicine 09/13/22 Sukumar Leslie MD Consulting Physician Cardiology 02/27/20 Miscellaneous, Not In File 02/27/20 Nura Mora MD Surgeon Neurosurgery 02/27/20
[2025-05-30] MEDS: ACETAMINOPHEN 500 MG TABLET 1000 MG PO (10:35)
--- NOTE | 2025-05-30 11:46 | WPDHPUPDATE1 ---
History and Physical Update Update Date/Time: 05/30/25 11:46 History and Physical has been reviewed, including an updated exam of the patient. There are NO changes in the patient's condition. Risks, benefits, and alternatives have been discussed and questions answered. Patient agrees to proceed with procedure.
--- NOTE | 2025-05-30 11:58 | P.PNAN_ITS ---
Anes - Initial Pre Proc Eval Procedure: Operation Date: 05/30/25 12:00 Proposed Procedures p Left Shoulder Arthroscopic Bicep Tenodesis, Subacromial Decompression, Superior Labrum Anterior to Posterior Tear Debridement - Taj Chu MD Date/Time: 05/30/25 11:58 Surgeon: Taj Chu MD Pre Op Diagnosis: Biceps Tendinopathy SLAP Tear Shoulder Patient Data Age: 54 Gender: F Height: 1.6 m Weight: 67.8 kg Last Vital Signs Temp 36.3 C L 05/30/25 09:45 Pulse 58 L 05/30/25 09:45 Resp 16 05/30/25 09:45 BP 145/87 H 05/30/25 09:45 Pulse Ox 100 05/30/25 09:45 O2 Del Method Room Air 05/30/25 09:45 Allergies Allergy/AdvReac Type Severity Reaction Status Date / Time Sulfa (Sulfonamide Allergy Severe Anaphylactic Verified 05/30/25 10:46 Antibiotics) Shock fentanyl AdvReac Unknown Hypotension Verified 05/30/25 10:46 morphine AdvReac Unknown Itching Verified 05/30/25 10:46 Home Medications ?Medication ?Instructions ?Recorded ?Confirmed ?Type carvedilol 25 mg tablet 25 mg PO Q12H 03/05/2405/30 History estradiol 0.5 mg tablet 0.5 mg PO DAILY 03/05/24 History topiramate 100 mg capsule,extended 100 mg PO DAILY 10/2805/30/25 History release 24 hr hydrocodone 7.5 mg-acetaminophen 1 tablet PO QHS PRN P ain 07/17/24 05/30/25 History 325 mg tablet Held on 05/30/25. Instructions: Resume on 06/13/25. Hold while taking Oxycodone. meloxicam 7.5 mg tablet 7.5 mg PO BID 07/22/2405/19 History valsartan 160 1 tablet PO DAILY 07/22/24 0 05/30/25 History mg-hydrochlorothiazide 12.5 mg tablet oxycodone-acetaminophen 5 mg-325 1 - 2 tablet PO Q4-6H PRN pain 7 05/30/25 Rx mg tablet days #30 tabs Patient hx anesthesia problems: none Family hx anesthesia problems: none Results Review: All pre-operative results and documents have been reviewed as part of the pre- operative evaluation. [facility] Past Medical History Medical History Pain in right shoulder Pain in left ankle and joints of left foot Abnormal weight gain Other intra-abdominal and pelvic swelling, mass and lump Other fatigue Anorexia Depression, unspecified Nightmare disorder Allergic contact dermatitis, unspecified cause Postherpetic polyneuropathy Menopausal and female climacteric states Vitamin D deficiency, unspecified Low back pain, unspecified Insomnia, unspecified Iron deficiency anemia, unspecified Essential (primary) hypertension Surgical History Surgical History History of total hysterectomy History of elbow surgery History of adenoidectomy History of tonsillectomy History of spinal fusion (~2019) S/P insertion of spinal cord stimulator (~02/21/24) Social History Social History Smoking packs per day: 0.5 Smoking cigarettes per day: 10.0 Years smoked: 40 Smoking pack-years: 20.00 Smoking status: Current every day smoker Tobacco type: cigarettes Alcohol intake: current Drinks per week: 4 Substance use: never Substance use type: does not use Do You Feel Safe in your Home?: Yes Lack of Transportation: No Lack of Food: Never True Current Housing: I Have Housing Concerned About Future Housing: No Difficulty Paying Gas/Electric Bills: No Difficulty Paying for Meds: No Currently Unemployed: No Education: Trade/Vocational Certificate Difficulty w/ Childcare or Family Care: No Living arrangements: with family Spiritual care concerns: No Anes - Eval Final PreProcedure Day of Procedure 05/30/25 11:58 Patient weight: overweight Heart: regular rate and rhythm Lungs: clear to auscultation Airway: Mallampati scale class II Neurological: alert and oriented Last oral intake: >/= 8 hours ASA classification: III Emergent: no Anesthetic plan: proceed Anesthesia type and monitoring: general ETT and standard monitoring Results Review: All pre-operative results and documents have been reviewed as part of the pre- operative evaluation. Informed Consent: The patient's anesthetic plan and its attendant risks and benefits were discussed with the patient/family/POA. Questions were solicited and answers provided to the satisfaction of the patient/family/POA.
[2025-05-30] MEDS: ceFAZolin 2 GM in SODIUM CHLORIDE 0.9% IV 50 ML 100 ML IVPB (12:08)
[2025-05-30] MEDS: EPINEPHrine HCL INJ 1 MG/ML AMPUL 3 MG IRRIGATION (13:26)
[2025-05-30] MEDS: LACTATED RINGERS 1,000 ML 30 ML IV CONT ×2 (13:57)
[2025-05-30] MEDS: HYDROmorphone HCL INJ (*CRX) 1 MG/ML SYR 0.25 MG IV PUSH ×4 (14:25→14:55)
--- NOTE | 2025-05-30 14:34 | P.OP_ITS ---
Procedure Note - Detailed Date of Procedure 05/30/25 Pre-op Diagnosis Left shoulder partial-thickness rotator cuff tear, slap tear biceps tendinopathy, adhesive capsulitis. Post-op Diagnosis Other (1. Partial thickness rotator cuff tear 2. Subacromial impingement 3. Adhesive Capsulitis 4. Degenerative SLAP tear) Procedure Performed Left shoulder 1. Arthroscopic rotator cuff repair 2. Arthroscopic subacromial decompression 3. Arthroscopic capsule release 4. Arthroscopic labral debridement Surgeon Taj Chu MD [employer] Manufacturing Coordinator Niesha Carlisle PA-C Anesthesia General Findings Grade 2 partial-thickness articular tear of the supraspinatus. Shoulder was found to be very stiff on exam with external rotation limited to 15?. Elevation 120?. Capsule contracture treated capsule release. Biceps appeared healthy with only mild degenerative SLAP tearing treated with simple debridement. Evidence of subacromial impingement treated with acromioplasty. Description of Procedure Preoperative antibiotics were given. The patient was bought brought to the operating room. A general anesthetic was administered. The patient was carefully positioned in the beach chair position. The head and neck were carefully positioned. The non operative extremity was also carefully positioned. The shoulder was prepped and draped in the usual sterile fashion. Examination was performed. The shoulder was clearly contracted. Range of carolyne on represented progressive contraction over the previous few months. External rotation limited to 20?. After arthroscopic capsule release and manipulation, external rotation improved to 70?. Elevation improved from 120? to 160?. Standard posterior and anterior arthroscopic portals were established. Inflow achieved with the arthroscopic pump using saline and epinephrine. The glenohumeral joint was carefully inspected. The capsule was clearly tight primarily anterior inferiorly. The middle glenohumeral ligament, rotator interval, and anterior inferior capsular tissue was released with the radiofrequency probe and the arthroscopic biter. This was brought posteriorly until the shoulder felt quite appropriately loose and balanced with very good space between the glenoid and humerus. There was a moderate capsulitis as well consistent with these findings. Biceps tendon was very stable and the anchor was intact with only mild degenerative tearing of the superior labrum. Simple debridement the arthroscopic shaver was performed in this area. The subscapularis was normal. The rotator cuff showed grade 2 changes at the articular supraspinatus. There was some mild degeneration of the tissues with yellowish coloring. Gentle debridement was performed. The tear was marked with a spinal needle and PDS suture. The margin of the biceps was also marked for later orientation. Biceps was pulled into the joint and inspected. There were no abnormal findings, hyperemia, or evidence of degeneration. Attention was turned to the subacromial space. A complete bursectomy was performed. There was some hypertrophic bursa and evidence of impingement on the anterolateral acromion which was moderately prominent. The soft tissues were removed with the radiofrequency probe and the arthroscopic bur was used to remove the anterolateral subacromial bone to a flat surface. This opened the subacromial space very nicely. The bursal rotator cuff appeared healthy. Tear thickness was estimated between 30 and 50%. It was elected to use the Regeneten implant. For PDS soft tissue suture anchors were placed in the medial aspect of the implant. The lateral corners were secured to the greater tuberosity with peek bone anchors x2. The arthroscopic instruments were removed. The wounds were closed with 3-0 Monocryl subcuticular suture and steri strips. There were no complications. A sling was applied and the patient brought to the recovery room. Physician children's nursery assistant, Niesha Carlisle PA-C, required for surgery; including patient positioning, draping, arthroscopic camera operation, maintaining instrument position, implant placement and anchor placement, wound closure, and dressing and sling placement. Implants Regeneten medium-sized collagen implant. Five PDS soft tissue anchors, 2 peek bone anchors. Estimated Blood Loss 20 Pathology None sent Complications No immediate complications Condition Stable Disposition PACU [facility] Billing Surgery - Charge Forward: Surgery Billing
[2025-05-30] MEDS: HYDROcodone/acetaminophen (*CRX) 5-325 MG TABLET 1 TAB PO (15:33)
== END 2025-05-30 16:00 | disposition home or self-care (01) ==
PROVIDERS: Visit Provider Orthopaedic Surgery
PROC: (CPT 29805; principal; 2025-05-30 12:00)
DX: M75.82 Other shoulder lesions, left shoulder (principal); M75.112 Incomplete rotator cuff tear or rupture of left shoulder, not specified as traumatic; M75.42 Impingement syndrome of left shoulder; M77.8 Other enthesopathies, not elsewhere classified; I10 Essential (primary) hypertension; D50.9 Iron deficiency anemia, unspecified; G47.00 Insomnia, unspecified; E55.9 Vitamin D deficiency, unspecified; B02.23 Postherpetic polyneuropathy; F51.5 Nightmare disorder; F32.A Depression, unspecified; R63.0 Anorexia; Z68.26 Body mass index [BMI] 26.0-26.9, adult; R53.83 Other fatigue; F17.210 Nicotine dependence, cigarettes, uncomplicated; Z79.891 Long term (current) use of opiate analgesic; Z98.890 Other specified postprocedural states; Z98.1 Arthrodesis status; Z96.82 Presence of neurostimulator
CPT/HCPCS: 29827; 29826; J0690; A9270; C1713; J0166; J1100; J1171; J2003; J2250; J2405; J2704; J7120